=== PATIENT | female | born 1950 | race Two or more races ===

== ENCOUNTER 2020-06-28 15:01 | Outpatient (REF) | payer MEDICARE, SELFPAY ==
--- NOTE | 2020-06-28 15:07 | MM_ITS ---
EXAMINATION: MM SCREENING DIGITAL BREAST TOMOSYNTHESIS, BILATERAL CLINICAL INFORMATION: Screening. Asymptomatic. The lifetime risk of breast cancer based on the Tyrer-Cuzick Model is 3.7%. COMPARISON: Mammography: February 21, 2019 and studies dating back to October 12, 2012 TECHNIQUE: Digital breast tomosynthesis is performed in both the craniocaudal and mediolateral oblique views along with computer-aided detection (CAD). Synthesized 2D images are generated from the tomosynthesis. FINDINGS: There are scattered areas of fibroglandular density (ACR BI-RADS breast composition Category b). There are no significant masses, abnormal calcifications, or other abnormalities. MM/MM tomosynthesis screening BI IMPRESSION: There are no significant changes from prior study. ASSESSMENT: BI-RADS 1: Negative RECOMMENDATION: Routine annual mammography screening. This patient's information was entered into a reminder system with a target due date for their next mammogram.
== END 2020-06-28 15:02 | disposition home or self-care (01) ==
LOC: HO.MAMMO 15:01
PROVIDERS: PCP Internal Medicine; Visit Provider Internal Medicine
DX: Z12.31 Encounter for screening mammogram for malignant neoplasm of breast (principal)
CPT/HCPCS: 77063; 77067

== ENCOUNTER 2020-07-08 14:25 | Outpatient (REF) | payer MEDICARE, SELFPAY | END 2020-07-08 14:26 | disposition home or self-care (01) | LOC: HO.LAB 14:25 | PROVIDERS: PCP Internal Medicine; Visit Provider Internal Medicine | DX: Z20.828 Contact with and (suspected) exposure to other viral communicable diseases (principal) | CPT/HCPCS: U0003 ==

== ENCOUNTER → 2020-07-24 09:26 | Outpatient (BNVA) | payer MEDICARE, SELFPAY | PROVIDERS: PCP Internal Medicine; Referring Provider Internal Medicine; Visit Provider Internal Medicine | DX: E11.65 Type 2 diabetes mellitus with hyperglycemia (principal); E11.40 Type 2 diabetes mellitus with diabetic neuropathy, unspecified; Z79.4 Long term (current) use of insulin; E55.9 Vitamin D deficiency, unspecified; E04.2 Nontoxic multinodular goiter; E78.5 Hyperlipidemia, unspecified; I10 Essential (primary) hypertension; Z79.899 Other long term (current) drug therapy | CPT/HCPCS: Q3014 ==

== ENCOUNTER 2020-08-06 13:04 | Outpatient (REF) | payer MEDICARE, SELFPAY ==
[2020-08-06 14:24] LABS: Estimated Average Glucose 344 mg/dL; Hemoglobin A1c % 13.6 %
[2020-08-06 14:52] LABS: Alanine Aminotransferase 15 U/L (0-31); Albumin Level 4.1 g/dL (3.5-5.0); Alkaline Phosphatase 58 U/L (39-117); Anion Gap 13 (12-20); Aspartate Amino Transferase 17 U/L (5-31); Bilirubin Total 0.5 mg/dL (0.0-1.0); Blood Urea Nitrogen 26 mg/dL (9-16); Calcium 9.4 mg/dL (8.4-10.2); Carbon Dioxide 25 mmol/L (22-29); Chloride 98 mmol/L (96-108); Cholesterol 176 mg/dL; Estimated Glomerular Filt Rate 38; HDL Cholesterol 38 mg/dL; Potassium 4.2 mmol/l (3.3-5.1); Sodium 132 mmol/L (135-145); Triglycerides 409 mg/dL
[2020-08-06 14:57] LABS: Glucose Random 415 mg/dL (60-115)
[2020-08-06 15:13] LABS: Free T4 (Free Thyroxine) 0.95 ng/dL (0.71-1.85); Thyroid Stimulating Hormone 0.44 uIU/mL (0.32-4.0); Vitamin D 25-OH Total 40.4 ng/mL (>30)
[2020-08-06 15:24] LABS: Creatinine Urine 107.36 mg/dL; Microalbum/Creatinine Ratio Ur 31.6 ug/mg cr
[2020-08-07 20:42] LABS: LDL Cholesterol Direct 81 mg/dL (<100)
== END 2020-08-06 13:05 | disposition home or self-care (01) ==
LOC: HO.10HDL 13:04
PROVIDERS: Visit Provider Internal Medicine
DX: E11.65 Type 2 diabetes mellitus with hyperglycemia (principal); Z79.4 Long term (current) use of insulin; E04.2 Nontoxic multinodular goiter; E55.9 Vitamin D deficiency, unspecified
CPT/HCPCS: 80053; 80061; 82043; 82306; 83036; 83721; 84439; 84443

== ENCOUNTER 2020-08-08 10:27 | Outpatient (REF) | payer MEDICARE, SELFPAY ==
--- NOTE | 2020-08-08 10:31 | US_ITS ---
EXAMINATION: US THYROID CLINICAL INFORMATION: Nontoxic multinodular goiter. COMPARISON: Ultrasound soft tissue head/neck thyroid dated 12/15/2018 and 05/05/2012 TECHNIQUE: Linear transducer oneill-scale and color Doppler examination with attention to the region of the thyroid. FINDINGS: SIZE: Measurements of the thyroid lobes and nodules are given in sagittal, anteroposterior and transverse dimensions respectively. Right Thyroid Lobe: 4.7 x 1.7 x 1.9 cm, volume 7.9 mL. Previously 5.3 x 1.9 x 2.3 cm, volume 11.9 mL. Parenchyma: The gland echotexture is homogeneous. Thyroid vascularity is normal. Left Thyroid Lobe: 3.5 x 1.5 x 1.5 cm, volume 4.1 mL. Previously 3.8 x 1.5 x 1.6 cm, volume 4.6 mL. Parenchyma: The gland echotexture is homogeneous. Thyroid vascularity is normal. Isthmus: 0.7 cm in maximum AP dimension. Previously 0.7 cm. RIGHT THYROID LOBE: There are 4 nodules seen. 1. Location: Superior. Size: 0.6 x 0.3 x 0.6 cm. Previous: 0.7 x 0.7 x 0.8 cm. Nodule characteristics: Hypoechoic, smoothly marginated with no intranodular flow, likely complex cyst. 2. Location: Middle. Size: 0.9 x 1.0 x 0.8 cm. Previous: 1.5 x 0.8 x 1.0 cm. Nodule characteristics: Hypoechoic, smoothly marginated with intranodular flow. 3. Location: Middle. Size: 0.8 x 0.7 x 0.7 cm. Previous: 0.8 x 0.7 x 1.0 cm. Nodule characteristics: Hypoechoic, smoothly marginated with intranodular flow. 4. Location: Inferior. Size: 1.7 x 1.2 x 1.7 cm. Previous: 1.6 x 1.5 x 1.8 cm. Nodule characteristics: Hypoechoic, smoothly marginated with intranodular flow. ISTHMUS: There are 3 nodules seen. 1. Location: Right isthmus. Size: 1.0 x 0.9 x 1.0 cm. Previous: 1.4 x 0.9 x 0.2 cm. Nodule characteristics: Hypoechoic, smoothly marginated with intranodular flow. 2. Location: Middle. Size: 1.6 x 0.8 x 1.5 cm. Previous: 0.8 x 1.0 x 0.9 cm. Nodule characteristics: Hypoechoic, smoothly marginated with intranodular flow. 3. Location: Right isthmus. Size: 1.0 x 0.7 x 0.7 cm. Previous: Not documented on the prior study. Nodule characteristics: Hypoechoic, smoothly marginated with intranodular flow. LEFT THYROID LOBE: There are 2 nodules seen. 1. Location: Superior. Size: 1.0 x 0.5 x 0.8 cm. Previous: 0.5 x 0.2 x 0.5 cm. Nodule characteristics: Hypoechoic, smoothly marginated with echogenic calcifications and intranodular flow. 2. Location: Middle. Size: 1.5 x 0.9 x 0.9 cm. Previous: 1.4 x 0.7 x 0.9 cm. Nodule characteristics: Hypoechoic, smoothly marginated with intranodular flow. NODES: No lymphadenopathy is seen in the tissue surrounding the thyroid gland. US/US thyroid IMPRESSION: Multiple bilateral thyroid nodules. A nodule in the mid isthmus has doubled in size an 0.8 to 1.6 cm on the present exam. There is a midpole cystic and solid nodule left thyroid lobe measuring 1.5 cm, new. Recommend biopsy of these 2 nodules.
== END 2020-08-08 10:28 | disposition home or self-care (01) ==
LOC: HO.US 10:27
PROVIDERS: Visit Provider Internal Medicine
DX: E04.2 Nontoxic multinodular goiter (principal)
CPT/HCPCS: 76536

== ENCOUNTER 2020-10-07 06:38 | Outpatient (REF) | payer MEDICARE, SELFPAY | END 2020-10-07 06:39 | disposition home or self-care (01) | LOC: HO.LAB 06:38 | PROVIDERS: Visit Provider Internal Medicine | DX: Z20.822 Contact with and (suspected) exposure to COVID-19 (principal) | CPT/HCPCS: 36415; C9803; U0003; U0005 ==

== ENCOUNTER 2020-11-14 10:37 | Outpatient (REF) | payer MEDICARE, SELFPAY | END 2020-11-14 10:38 | disposition home or self-care (01) | LOC: HO.LAB 10:37 | PROVIDERS: Visit Provider Internal Medicine | DX: Z20.822 Contact with and (suspected) exposure to COVID-19 (principal) | CPT/HCPCS: 36415; C9803; U0003; U0005 ==

== ENCOUNTER 2020-12-25 08:51 | Outpatient (REF) | payer MEDICARE, SELFPAY ==
[2020-12-25 09:22] LABS: COVID-19 Test Negative (Negative); IDNOW Serial# 55D5AD1C
== END 2020-12-25 08:52 | disposition home or self-care (01) ==
LOC: HO.LAB 08:51
PROVIDERS: Visit Provider Internal Medicine
DX: Z20.822 Contact with and (suspected) exposure to COVID-19 (principal)
CPT/HCPCS: 36415; 87635; C9803

== ENCOUNTER 2021-01-10 14:45 | Outpatient (REF) | payer MEDICARE, SELFPAY ==
[2021-01-11 10:41] LABS: CT PCR NOT DETECTED (Not Detect.); NG PCR NOT DETECTED (Not Detect.)
[2021-01-11 11:58] LABS: BV Int Neg Control Negative (Negative); BV Int Pos Control Positive (Positive)
[2021-01-15 20:52] LABS: HPV mRNA E6/E7 rflx Not Detected (Not Detected)
== END 2021-01-10 14:46 | disposition home or self-care (01) ==
LOC: HO.LAB 14:45
PROVIDERS: PCP Internal Medicine; Visit Provider Obstetrics & Gynecology
DX: Z01.419 Encounter for gynecological examination (general) (routine) without abnormal findings (principal); N39.3 Stress incontinence (female) (male); Z87.891 Personal history of nicotine dependence
CPT/HCPCS: 87480; 87491; 87510; 87591; 87624; 87660; 88142

== ENCOUNTER 2021-02-19 11:00 | Outpatient (RCR) | payer MEDICARE, SELFPAY | END 2021-04-08 09:00 | disposition home or self-care (01) | LOC: HO.PT 11:00 | PROVIDERS: Visit Provider Obstetrics & Gynecology | DX: N39.3 Stress incontinence (female) (male) (principal) | CPT/HCPCS: 97110; 97112; 97140; 97162 ==

== ENCOUNTER 2021-02-27 08:58 | Outpatient (REF) | payer MEDICARE, SELFPAY ==
--- NOTE | ~2021-02-27 | MM_ITS ---
EXAMINATION: BONE DENSITOMETRY CLINICAL INDICATION: Other specified personal risk factors. COMPARISON: Baseline BD dated 12/24/2016. TECHNIQUE: Using a [employer] DXA System (software version: 13.1) manufactured by [employer], dual-energy x-ray absorptiometry was performed of the lumbar spine and left hip. The images are of good technical quality. Summary results are attached. FINDINGS: AP SPINE L1-L4: Current: BMD 0.986 g/cm2, Z-score 0.2, T-score -1.6, osteopenia, 5.3% increase from baseline (<5% change is not significant). Baseline: BMD 0.936 g/cm2. LEFT FEMUR, NECK: Current: BMD 0.861 g/cm2, Z-score 0.5, T-score -1.3, osteopenia. Baseline: BMD 0.835 g/cm2. LEFT FEMUR, TOTAL: Current: BMD 0.875 g/cm2, Z-score 0.5, T-score -1.1, osteopenia, 0.8% increase from baseline (<5% change is not significant). Baseline: BMD 0.868 g/cm2. IDENTIFIED RISK FACTORS: Menopause, height loss, history of fracture (adult), anticonvulsants, secondary osteoporosis. HISTORY OF FRACTURE: Foot. MEDICATIONS: Calcium, vitamin D. MM/XR DEXA axial skeleton IMPRESSION: 1. DIAGNOSIS: Osteopenia based on the lowest T-score value of -1.6 in the lumbar spine applying World Health Organization criteria. 2. 10-YEAR FRACTURE RISK PREDICTION, FRAX: Major osteoporotic fracture (clinical spine, forearm, hip or shoulder) 8.6%. Hip fracture 1.0%. 3. Treatment Recommendations: NOF guidelines recommend consideration for treatment in postmenopausal women and men age 50 and older presenting with the following: -A hip or vertebral (clinical or morphometric) fracture. -T-score less than or equal to -2.5 at the femoral neck or spine after appropriate evaluation to exclude secondary causes. -Low bone mass at the hip or spine and a 10-year fracture probability by FRAX of greater than or equal to 3% for hip fracture or greater than or equal to 20% for major osteoporotic fracture based on the [place] adapted WHO algorithm. 4. Other Recommendations: All treatment decisions require clinical judgment and consideration of individual patient factors, including patient preferences, comorbidities, previous drug use, risk factors not captured in the FRAX model (e.g. frailty, falls, vitamin D deficiency, increased bone turnover, interval significant decline in bone density) and possible under or overestimation of fracture risk by FRAX. Additional medical evaluation for secondary cause of low bone mineral density may be appropriate. FUTURE SCAN RECOMMENDATION: People with diagnosed cases of osteoporosis or at high risk for fracture should have regular bone mineral density tests. For patients eligible for Medicare, routine testing is allowed once every 2 years. The testing frequency can be increased to one year for patients who have rapidly progressing disease, those who are receiving or discontinuing medical therapy to restore bone mass, or have additional risk factors.
== END 2021-02-27 08:59 | disposition home or self-care (01) ==
LOC: HO.MAMMO 08:58
PROVIDERS: PCP Internal Medicine; Visit Provider Obstetrics & Gynecology
DX: Z13.820 Encounter for screening for osteoporosis (principal); M85.80 Other specified disorders of bone density and structure, unspecified site; Z78.0 Asymptomatic menopausal state; Z87.81 Personal history of (healed) traumatic fracture; Z79.899 Other long term (current) drug therapy; Z79.01 Long term (current) use of anticoagulants
CPT/HCPCS: 77080

== ENCOUNTER 2021-07-30 10:45 | Outpatient (REF) | payer MEDICARE, SELFPAY ==
[2021-07-30 14:35] LABS: Alanine Aminotransferase 16 U/L (0-31); Albumin Level 4.2 g/dL (3.5-5.0); Alkaline Phosphatase 69 U/L (39-117); Anion Gap 12 (12-20); Aspartate Amino Transferase 19 U/L (5-31); Bilirubin Total 0.5 mg/dL (0.0-1.0); Blood Urea Nitrogen 22 mg/dL (9-16); Calcium 9.6 mg/dL (8.4-10.2); Carbon Dioxide 27 mmol/L (22-29); Chloride 104 mmol/L (96-108); Cholesterol 186 mg/dL; Estimated Glomerular Filt Rate 39; Glucose Random 143 mg/dL (60-115); HDL Cholesterol 32 mg/dL; LDL Cholesterol Calculated 97 mg/dl; Sodium 139 mmol/L (135-145); Total Protein 7.1 g/dL (6.5-8.0); Triglycerides 287 mg/dL
[2021-07-30 14:43] LABS: Free T4 (Free Thyroxine) 1.06 ng/dL (0.71-1.85); Thyroid Stimulating Hormone 0.67 uIU/mL (0.32-4.0)
[2021-07-30 14:52] LABS: Creatinine Urine 97.36 mg/dL; Microalbum/Creatinine Ratio Ur 19.5 ug/mg cr
[2021-07-30 15:03] LABS: Hemoglobin A1c % > 14.0 %
[2021-07-30 15:55] LABS: Vitamin B12 723 pg/mL (200-900)
[2021-08-01 07:41] LABS: LDL Cholesterol Direct 85 mg/dL (<100)
[2021-08-01 18:06] LABS: Triiodothyronine T3 Total 95 ng/dL (76-181)
== END 2021-07-30 10:46 | disposition home or self-care (01) ==
LOC: HO.10HDL 10:45
PROVIDERS: Visit Provider Internal Medicine
DX: E04.2 Nontoxic multinodular goiter (principal); E11.65 Type 2 diabetes mellitus with hyperglycemia; Z79.4 Long term (current) use of insulin
CPT/HCPCS: 36415; 80053; 80061; 82043; 82607; 83036; 83721; 84439; 84443; 84480

== ENCOUNTER 2021-08-17 12:41 | Emergency (ER) | payer MEDICARE, SELFPAY ==
[2021-08-17 12:48] VITALS: BP 187/63; PULSE 59; RESP 18; TEMP 36.9; O2SAT 98; BMI 31.2
--- NOTE | 2021-08-17 13:11 | ECG_ITS ---
Test Reason : DIZZINESS Blood Pressure : / mmHG Vent. Rate : 059 BPM Atrial Rate : 059 BPM P-R Int : 174 ms QRS Dur : 080 ms QT Int : 432 ms P-R-T Axes : 021 -15 000 degrees QTc Int : 427 ms Sinus bradycardia Minimal voltage criteria for LVH, may be normal variant ( R in aVL ) Borderline ECG When compared with ECG of 08-APR-2020 17:45, No significant change was found Referred By: Alma Shaw Electronically Signed By:SMILEY MAYER MD
--- NOTE | 2021-08-17 13:11 | ED.DIZZY ---
HPI - Dizziness General Chief Complaint: Dizziness Stated Complaint: headache dizzy r arm pain Time Seen by Provider: 08/17/21 13:11 Source: patient Mode of arrival: ambulatory Limitations: no limitations History of Present Illness HPI Narrative: This is a 71-year-old female past medical history significant for multinodular thyroid, hyperlipidemia, hypertension, diabetes presenting to the emergency department with dizziness that started this morning. She describes her dizziness the room spinning, she tells me is worse when she is lying down with her eyes closed, better sitting. She also reports associated nausea. She tells me that this has happened to her before, and they gave her meclizine which helped. She reports that this started after she woke up, and side up quickly. She denies chest pain, headache, vision changes, an vomiting, abdominal pain, weakness. MD elicited complaint: dizziness Onset (ago): hour(s) (4) Timing: sudden onset, awoke with symptoms and constant Severity: severe Description: sense of movement and room spinning History of similar symptoms: Yes Exacerbating factors: change in body position, keeping eyes closed and position/lying down Relieving factors: nothing Associated symptoms: denies other symptoms Related Data Home Medications Medication Instructions Recorded Confirmed alcohol swabs 0 pad TOPICAL 07/24/20 07/24/20 amlodipine 5 mg tablet 5 mg PO DAILY 07/24/20 07/24/20 aspirin 81 mg chewable tablet 1 tab PO DAILY 07/24/20 07/24/20 atenolol 50 mg tablet 50 mg PO DAILY 07/24/20 07/24/20 blood sugar diagnostic #10 ea 07/24/20 07/24/20 calcium carbonate 500 mg-vitamin 0 tab PO 07/24/20 07/24/20 D3 10 mcg (400 unit) tablet chlorthalidone 50 mg tablet 50 mg PO DAILY 07/24/20 07/24/20 cilostazol 50 mg tablet 50 mg PO BID 07/24/20 07/24/20 cimetidine 200 mg tablet 200 mg PO BID 07/24/20 07/24/20 gabapentin 400 mg capsule 400 mg PO BID cap 07/24/20 07/24/20 insulin aspart U-100 100 unit/mL 10 unit SUBCUT TID ml 07/24/20 07/24/20 (3 mL) subcutaneous pen insulin glargine 100 unit/mL (3 56 unit SUBCUT QPM ml 07/24/20 07/24/20 mL) subcutaneous pen loratadine 10 mg tablet 10 mg PO DAILY 07/24/20 07/24/20 losartan 100 mg tablet 100 mg PO DAILY 07/24/20 07/24/20 pantoprazole 40 mg tablet,delayed 40 mg PO DAILY 07/24/20 07/24/20 release pen needle, diabetic 32 gauge x #50 ea 07/24/20 07/24/20 rosuvastatin 10 mg tablet 10 mg PO BEDTIME 07/24/20 07/24/20 Previous Rx's Medication Instructions Recorded dulaglutide 1.5 mg/0.5 mL 1.5 mg (0.5 mL) SUBCUT QWEEK 30 08/12/21 subcutaneous pen injector Days #2.5 ml (Trulicity) meclizine 25 mg tablet 25 mg PO Q6-8H PRN #20 tab 08/17/21 ondansetron 4 mg disintegrating 4 mg PO ONCE PRN #10 tab 08/17/21 tablet Allergies Allergy/AdvReac Type Severity Reaction Status Date / Time No Known Allergies Allergy Verified 01/10/21 14:49 Review of Systems Review of Systems: Constitutional : No Weight loss, No Fever, No Chills, No Fatigue, No Malaise ENT/Mouth : No sore throat, No Rhinorrhea Eyes: No Eye Pain, No Swelling, No Redness Cardiovascular : No Chest Pain, No SOB, No Dyspnea on Exertion, No Orthopnea, No Edema, No Palpitations Respiratory : No Cough, No Sputum, No Wheezing Gastrointestinal : + Nausea, No Vomiting, No Diarrhea, No Constipation, No abdominal Pain, No Hematochezia, No Melena Genitourinary : No Dysuria, No Urinary Frequency, No Hematuria, Musculoskeletal : No joint pain, No Myalgias, No Joint Swelling Skin : No Skin Lesions, No rash Neuro : No Weakness, No Numbness, + Dizziness, No Headache All other systems reviewed and are negative [facility] Past Medical History Attestation statement: The following information was validated with the patient. Source: old records reviewed and nursing notes reviewed Medical History HLD (hyperlipidemia) HTN (hypertension) Multinodular thyroid T2DM (type 2 diabetes mellitus) Vitamin D deficiency Surgical History History of cholecystectomy Hx of colonoscopy Hx of endoscopic retrograde cholangiopancreatography Hx of tubal ligation Family History Family History Father Emphysema of lung Mother No problems noted. Social History Social History Alcohol intake: never Cigarette Packs Per Day: 1 Years Smoked: 20 Smoked in Last 30 Days: No Use of substances other than those prescribed or required for medical reasons: No Advance Directives: No Advance Directives Information Provided: Yes Physical Exam Vital Signs: Vital Signs: Last Vital Signs Temp 98.4 F 08/17/21 12:48 Pulse 59 08/17/21 12:48 Resp 18 08/17/21 12:48 BP 187/63 H 08/17/21 12:48 Pulse Ox 98 08/17/21 12:48 BMI result Body Mass Index 31.2 Vital signs are stable, patient noted to be slightly hypertensive. Appearance: Alert.? Oriented X3.? No acute distress.? Head: Normocephalic, atraumatic, no step-offs or deformities Eyes: Pupils equal, round and reactive to light.? ENT: Pharynx normal.? Neck: Normal inspection.? Neck supple.? CVS: Normal heart rate and rhythm.? Pulses normal.? Respiratory: No respiratory distress.? Breath sounds normal.? Abdomen: Soft and nontender.? Skin: Skin warm and dry.? Normal skin color.? Normal skin turgor.? Extremities: No lower extremity edema.? No calf ttp. 5/5 strength to bilateral upper and lower extremities Back: No midline tenderness, no C-spine tenderness, full range of motion, no CVA tenderness bilaterally Neuro: Oriented X 3.? No motor deficit.? No sensory deficit. 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 Patient ambulating with a steady gait, no ataxia. Course Reevaluation(s) Reevaluation #1: I did the Lee maneuver on the patient, and patient reports significant improvement, this is reassuring as this is likely vertigo. I discussed getting a head CT with the patient and she tells me she will return with new or worsening symptoms i do not suspect ICH, posterior or cerebellar stroke, stroke. Patient agrees that a CT is not needed at this time. Time: 13:36 Reevaluation #2: Patient is ambulating around the emergency department, free of dizziness, patient tells me she feels so much better. EKG does not show ischemia. Orthostatic vitals negative. At this time most likely diagnosis is vertigo. Meclizine and Zofran have been sent to the patient's pharmacy. I have advised her to return to the emergency department with new or worsening symptoms. Comfortable with discharge home. Time: 14:22 MDM - Dizziness MDM Narrative Medical decision making narrative: [id number] 71-year-old female past medical history significant for HLD, HTN and DM presents to the ED with vertigo since this AM. Vertigo started after quickly sitting up in bed this AM. Reports room spinning . Patient tells me she has had this before and meclizine has helped. Upon physical examination lungs are clear, regular rate and rhythm, abdomen soft nontender nondistended. 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 Bilateral ear canals within normal limits. Based off patient's history and physical examination I suspect that this is vertigo, unlikely that this is a posterior stroke, patient denies vision changes, difficulties with ambulation, weakness, no focal neuro deficits. She has a normal [id number], [id number]. Patient denies trauma to head, unlikely ICH. Plan at this time is to obtain an EKG, orthostatics vital signs. I wiill give meclizine and zofran. Differential Diagnosis Differential diagnosis: Likely adverse reaction to drug Medical Records Attestation: I reviewed the patient's medical records. Lab Data Attestation: I reviewed the patient's lab results. ECG Data Attestation: I personally reviewed and interpreted this ECG as follows: ECG interpretation date: 08/17/21 ECG interpretation time: 14:12 Prior ECG tracings: available for review Interpretation: Ventricular rate of 59, ME normal, QRS normal, QTC normal. No ST elevations or inversions concerning for ischemia. EKG shows sinus bradycardia. No significant changes when compared to EKG from April 08, 2020. Critical Care Time Critical Care Time Critical Care Time: No Discharge Plan Discharge Clinical Impression: Vertigo, Nausea Patient Disposition: Home, Self-Care Instructions: Vertigo (ED), Acute Nausea and Vomiting (ED) Additional Instructions: Take your medications as prescribed. If you were prescribed antibiotics today, it is important that you take your medication to their entirety, do not skip any doses, do not finish them early. Follow-up with your primary care provider this week. Return to the emergency department with new or worsening symptoms. In case of emergency call 911 Prescriptions: New ondansetron 4 mg tablet,disintegrating 4 mg PO ONCE PRN (Reason: nausea and vomiting) Qty: 10 RF: 0 meclizine 25 mg tablet 25 mg PO Q6-8H PRN (Reason: dizziness) Qty: 20 RF: 0 No Action Trulicity 1.5 mg/0.5 mL pen injector 1.5 mg subcut QWEEK 30 Days Qty: 2.5 RF: 4 atenolol 50 mg tablet 50 mg PO DAILY RF: 0 gabapentin 400 mg capsule 400 mg PO BID RF: 0 Lantus Solostar U-100 Insulin 100 unit/mL (3 mL) insulin pen 56 unit subcut QPM RF: 0 insulin aspart U-100 100 unit/mL (3 mL) insulin pen 10 unit subcut TID RF: 0 (DME) pen needle, diabetic 32 gauge x 5/32 needle See Rx Instructions ea .ROUTE .MEDSUPPLY Qty: 50 RF: 0 calcium carbonate-vitamin D3 500 mg(1,250mg) -400 unit tablet 0 tab PO RF: 0 loratadine 10 mg tablet 10 mg PO DAILY RF: 0 losartan 100 mg tablet 100 mg PO DAILY RF: 0 aspirin 81 mg tablet,chewable 1 tab PO DAILY RF: 0 pantoprazole 40 mg tablet,delayed release (DR/EC) 40 mg PO DAILY RF: 0 amlodipine 5 mg tablet 5 mg PO DAILY RF: 0 (DME) FreeStyle Lite Strips Strip See Rx Instructions ea Not Applicable .MEDSUPPLY Qty: 10 RF: 0 rosuvastatin 10 mg tablet 10 mg PO BEDTIME RF: 0 cilostazol 50 mg tablet 50 mg PO BID RF: 0 chlorthalidone 50 mg tablet 50 mg PO DAILY RF: 0 cimetidine 200 mg tablet 200 mg PO BID RF: 0 alcohol swabs Pads, Medicated 0 pad topical RF: 0 Referrals: Oriana Botello MD [Primary Care Provider] - 2 days Stand Alone Forms: Work/School Release
[2021-08-17] MEDS: Meclizine HCl 25 MG TABLET PO (13:45)
[2021-08-17] MEDS: Ondansetron ODT 4 MG TAB.RAPDIS TRANSLINGU (13:45)
[2021-08-17 15:08] VITALS: BP 160/63; PULSE 62
[2021-08-17 15:09] VITALS: BP 185/62; PULSE 60
[2021-08-17 15:10] VITALS: BP 163/63; PULSE 62
== END 2021-08-17 15:26 | disposition home or self-care (01) ==
PROVIDERS: Emergency Provider Emergency Medicine; PCP Internal Medicine
DX: R42 Dizziness and giddiness (principal); R11.0 Nausea; I10 Essential (primary) hypertension; E11.9 Type 2 diabetes mellitus without complications; E78.5 Hyperlipidemia, unspecified; Z79.4 Long term (current) use of insulin; Z79.82 Long term (current) use of aspirin; Z79.899 Other long term (current) drug therapy
CPT/HCPCS: 93005; 99283; 99284

== ENCOUNTER 2021-09-11 17:53 | Emergency (ER) | payer MEDICARE, SELFPAY ==
--- NOTE | ~2021-09-11 | CT_ITS ---
EXAMINATION: CT ABDOMEN AND PELVIS WITHOUT CONTRAST CLINICAL INFORMATION: Abdominal pain, resolved abdominal distension . COMPARISON: 06/27/2018. TECHNIQUE: Multidetector volumetric imaging was performed from the superior aspect of the liver through the pubic symphysis without contrast per renal stone protocol. Sagittal and coronal reformatted images were obtained on the technologist workstation. This CT examination was performed using dose optimization techniques as appropriate, variously including the following: *Automated exposure control *Adjustment of mA and/or kV according to patient size (this includes techniques or standardized protocols for targeted exams where dose is matched to indication/reason for exam; i.e. extremities or head) *Use of iterative reconstruction technique DLP: 404 mGy-cm. FINDINGS: LUNG BASES: Minimal dependent atelectasis. LIVER, GALLBLADDER, BILIARY TREE: Air in the biliary ductal system likely secondary to prior papillotomy. No focal hepatic lesions seen on this noncontrast study. Gallbladder surgically absent. PANCREAS: Unremarkable. SPLEEN: Unremarkable. ADRENAL GLANDS: There is a stable 1.8 cm left adrenal adenoma similar to the prior study. Contralateral right adrenal gland unremarkable. KIDNEYS AND URETERS: The kidneys are normal in size, shape, and attenuation. No hydronephrosis, hydroureter, or obstructing calculi seen. Mild vascular calcification noted No perinephric stranding. BLADDER: Unremarkable. GASTROINTESTINAL TRACT: Scattered colonic diverticulosis but no evidence for diverticulitis. Normal-appearing appendix in the right lower quadrant. ABDOMINAL WALL: No significant hernia is appreciated. LYMPHOVASCULAR STRUCTURES: Extensive vascular calcification within the aorta iliac system and mesenteric vessels. Bilateral iliac and distal aortic stents are seen.. PELVIC VISCERA: Unremarkable. OSSEUS STRUCTURES: Unremarkable. CT/CT abdomen pelvis wo con IMPRESSION: Chronic appearing changes similar to the prior study. I do not appreciate any acute superimposed process. .
--- NOTE | ~2021-09-11 | XR_ITS ---
EXAMINATION: PORTABLE CHEST 1 VIEW CLINICAL INFORMATION: abd pain . COMPARISON: 11/04/2019. TECHNIQUE: Portable frontal view of the chest was obtained. FINDINGS: The lungs are well expanded. No focal infiltrate, effusion, edema, or pneumothorax. Cardiac and mediastinal silhouettes are within normal limits for technique. No acute bony abnormality seen. XR/XR chest 1V IMPRESSION: No evidence of acute disease.
--- NOTE | ~2021-09-11 | US_ITS ---
EXAMINATION: US ABDOMEN COMPLETE CLINICAL INFORMATION: Right upper quadrant pain. Elevated enzymes.. COMPARISON: MR abdomen 06/28/2018. CT scan abdomen pelvis 06/27/2018 TECHNIQUE: Real-time imaging of the abdominal viscera. Carotid Doppler exam was used. FINDINGS: PANCREAS: Normal. ABDOMINAL AORTA: The proximal, mid, and distal segments are normal in caliber. INFERIOR VENA CAVA: Visualized portions are normal. LIVER: Normal. The liver is normal in size. The liver contour is normal. Parenchymal echogenicity is normal. No focal hepatic lesion. There is no intrahepatic biliary duct dilatation seen. GALLBLADDER: Status post cholecystectomy. No fluid collection at the gallbladder bed. COMMON BILE DUCT: Normal in caliber measuring 0.7 cm in diameter. (Choledocholithiasis noted on MR study of 06/28/2018. The CBD measures 1.2 cm on the prior MR exam.) RIGHT KIDNEY: Normal. No hydronephrosis. No renal calculi or focal parenchymal lesions. The kidney measures 10.4 cm in maximum dimension. LEFT KIDNEY: Normal. No hydronephrosis. No renal calculi or focal parenchymal lesions. The kidney measures 10.5 cm in maximum dimension. SPLEEN: Normal. The spleen measures 9.1 cm in maximum dimension. FREE FLUID: None. US/US abdomen complete IMPRESSION: No acute abnormality ultrasound of abdomen. Status post cholecystectomy. There is no bile duct dilatation. MRCP may be helpful for further assessment.
[2021-09-11 18:42] VITALS: BP 181/71; PULSE 80; RESP 18; TEMP 39; O2SAT 98; BMI 26.4
[2021-09-11] MEDS: Acetaminophen 325 MG TABLET 650 MG PO (18:54)
[2021-09-11 19:06] LABS: MANUAL DIFF FLAG NO
[2021-09-11 19:08] LABS: Basophils Percent Auto 0.2 % (0-2); Eosinophils Percent Auto 0.1 % (0-4); Hematocrit 33.4 % (37.0-47.0); Hemoglobin 11.8 g/dl (12.0-16.0); Imm Gran Abs Auto 0.11 X10*3/uL (0.00-0.03); Imm Gran Pct Auto 0.7 % (0.0-0.4); Lymphocytes Percent Auto 5.7 % (20-40); Mean Corpuscular HGB Conc 35.3 g/dl (31.0-35.0); Mean Corpuscular Hemoglobin 27.1 pg (27.0-33.0); Mean Corpuscular Volume 76.8 fL (80.0-98.0); Mean Platelet Volume 11.7 fL (9.4-12.3); Neutrophils Absolute Auto 14.7 x10*3/uL (2.0-8.3); Neutrophils Percent Auto 87.3 % (45-73); Platelet Count 225 X10*3/uL (160-400); Red Blood Count 4.35 X10*6/uL (4.20-5.50); Red Cell Distribution Width 11.8 % (11.0-16.0); White Blood Count 16.8 X10*3/uL (4.8-10.8)
[2021-09-11 19:20] LABS: COVID-19 Test Positive (Negative)
[2021-09-11 19:20] LABS: INTERNATIONAL NORM RATIO 1.2 (0.9-1.1); Prothrombin Time 13.6 SEC (9.9-13.0)
[2021-09-11 19:23] LABS: Appearance Urine CLEAR; Color Urine YELLOW; Glucose Urine UA >=1000 MG/DL (NEG); Leukocyte Esterase Urine NEG (NEG); Nitrite Urine NEG (NEG); UACC Culture Trigger NO; Urine Blood TRACE (NEG); Urine Ketones NEG (NEG); Urine Protein TRACE MG/DL (NEG-TRACE)
[2021-09-11 19:31] LABS: Alanine Aminotransferase 733 U/L (0-31); Albumin Level 4.5 g/dL (3.5-5.0); Alkaline Phosphatase 210 U/L (39-117); Anion Gap 14 (12-20); Aspartate Amino Transferase 792 U/L (5-31); Bilirubin Direct 0.7 mg/dL (0.0-0.5); Bilirubin Total 1.4 mg/dL (0.0-1.0); Blood Urea Nitrogen 24 mg/dL (9-16); Calcium 9.9 mg/dL (8.4-10.2); Carbon Dioxide 27 mmol/L (22-29); Chloride 95 mmol/L (96-108); Creatinine Clr Calc Pharmacy 25.2; Estimated Glomerular Filt Rate 30; Glucose Random 405 mg/dL (60-115); Lipase 33 U/L (8-78); Potassium 3.6 mmol/L (3.3-5.1); Sodium 132 mmol/L (135-145); Total Protein 7.8 g/dL (6.5-8.0)
[2021-09-11 19:42] LABS: RBC Urine 0-2 /HPF (0)
[2021-09-11 19:43] LABS: Squamous Epithelial Cell Urine TRACE /LPF
--- NOTE | 2021-09-11 20:07 | ED_ITS ---
HPI - Fever General Chief Complaint: Fever Stated Complaint: High blood pressure Time Seen by Provider: 09/11/21 18:51 Source: patient and family Mode of arrival: ambulatory Limitations: language barrier History of Present Illness HPI Narrative: 71-year-old female presents with fevers, chills, abdominal pain with distention and back pain. Stated that she has not felt well for a few days however the abdominal pain and abdominal distention started yesterday. She did take a COVID test at home which was negative. She does not report any nausea, vomiting, diarrhea, chest pain or pressure, palpitations, syncope, lightheadedness, dizziness, or anorexia. MD elicited complaint: fever Pertinent past history: diabetes Onset (ago): day(s) Exacerbating factors: nothing Relieving factors: nothing Associated symptoms: chills, myalgias, abdominal pain and back/flank pain Treatments prior to arrival fever: none Related Data Home Medications Medication Instructions Recorded Confirmed alcohol swabs 0 pad TOPICAL 07/24/20 07/24/20 amlodipine 5 mg tablet 5 mg PO DAILY 07/24/20 07/24/20 aspirin 81 mg chewable tablet 1 tab PO DAILY 07/24/20 07/24/20 atenolol 50 mg tablet 50 mg PO DAILY 07/24/20 07/24/20 blood sugar diagnostic #10 ea 07/24/20 07/24/20 calcium carbonate 500 mg-vitamin 0 tab PO 07/24/20 07/24/20 D3 10 mcg (400 unit) tablet chlorthalidone 50 mg tablet 50 mg PO DAILY 07/24/20 07/24/20 cilostazol 50 mg tablet 50 mg PO BID 07/24/20 07/24/20 cimetidine 200 mg tablet 200 mg PO BID 07/24/20 07/24/20 gabapentin 400 mg capsule 400 mg PO BID cap 07/24/20 07/24/20 insulin aspart U-100 100 unit/mL 10 unit SUBCUT TID ml 07/24/20 07/24/20 (3 mL) subcutaneous pen insulin glargine 100 unit/mL (3 56 unit SUBCUT QPM ml 07/24/20 07/24/20 mL) subcutaneous pen loratadine 10 mg tablet 10 mg PO DAILY 07/24/20 07/24/20 losartan 100 mg tablet 100 mg PO DAILY 07/24/20 07/24/20 pantoprazole 40 mg tablet,delayed 40 mg PO DAILY 07/24/20 07/24/20 release pen needle, diabetic 32 gauge x #50 ea 07/24/20 07/24/20 rosuvastatin 10 mg tablet 10 mg PO BEDTIME 07/24/20 07/24/20 Previous Rx's Medication Instructions Recorded dulaglutide 1.5 mg/0.5 mL 1.5 mg (0.5 mL) SUBCUT QWEEK 30 08/12/21 subcutaneous pen injector Days #2.5 ml (Trulicity) meclizine 25 mg tablet 25 mg PO Q6-8H PRN #20 tab 08/17/21 ondansetron 4 mg disintegrating 4 mg PO ONCE PRN #10 tab 08/17/21 tablet Allergies Allergy/AdvReac Type Severity Reaction Status Date / Time No Known Allergies Allergy Verified 09/11/21 18:42 Review of Systems Review of Systems: Constitutional: No Weight loss, positive Fever, positive Chills, No Night Sweats, positive Fatigue, No Malaise ENT/Mouth: No Hearing loss, No Ear Pain, No Nasal Congestion, No Sinus Pain, No Hoarseness, No sore throat, No Rhinorrhea, No Swallowing Difficulty Eyes: No Eye Pain, No Swelling, No Redness, No Foreign Body, No Discharge, No Vision Changes Cardiovascular: No Chest Pain, No SOB, No Dyspnea on Exertion, No Orthopnea, No Edema, No Palpitations Respiratory: No Cough, No Sputum, No Wheezing, No Smoke Exposure, No Dyspnea Gastrointestinal: Positive Nausea, no Vomiting, no Diarrhea, positive abdominal Pain, No Hematochezia, No Melena Genitourinary: no irregular bleeding, No Dysuria, No Urinary Frequency, No Hematuria, No Urinary Incontinence, No Urgency, No Flank Pain, No Urinary Flow Changes, No Hesitancy Musculoskeletal: Positive back pain, No joint pain, No Myalgias, No Joint Swelling Skin: No Skin Lesions, No rash Neuro: No Weakness, No Numbness, No Paresthesias, No Loss of Consciousness, No Dizziness, positive Headache Psych: No Anxiety/Panic, No Depression, No SI/HI/AH/VH, No Social Issues Heme/Lymph: No Bruising, No Bleeding,No Lymphadenopathy Endocrine: No Polyuria, No Polydipsia, No Temperature Intolerance Yes all other systems are reviewed and are negative [facility] Past Medical History Attestation statement: The following information was validated with the patient. Source: old records reviewed Medical History HLD (hyperlipidemia) HTN (hypertension) Multinodular thyroid T2DM (type 2 diabetes mellitus) Vitamin D deficiency Surgical History History of cholecystectomy Hx of colonoscopy Hx of endoscopic retrograde cholangiopancreatography Hx of tubal ligation Family History Family History Father Emphysema of lung Mother No problems noted. Social History Social History Alcohol intake: never Cigarette Packs Per Day: 1 Years Smoked: 20 Advance Directives: No Advance Directives Information Provided: No Physical Exam Vital Signs: Vital Signs: Last Vital Signs Temp 98.3 F 09/11/21 23:35 Pulse 71 09/11/21 23:35 Resp 16 09/11/21 23:35 BP 139/47 L 09/11/21 23:35 Pulse Ox 98 09/11/21 23:49 BMI result Body Mass Index 26.4 Appearance: Alert. Oriented X3. Mild distress. Febrile. Eyes: Pupils equal, round and reactive to light. EOMI. Sclera nonicteric. ENT: Pharynx normal. Moist mucous membranes. Neck: Normal inspection. Neck supple. CVS: Normal heart rate and rhythm. Pulses normal. Respiratory: No respiratory distress. Breath sounds normal. Abdomen: Soft and nontender. Nondistended. No rigidity. Skin: Skin warm and dry. Normal skin color. Normal skin turgor. Extremities: No lower extremity edema. A well-balanced well coordinated. Neuro: No motor deficit. No sensory deficit. Cranial nerves 2-12 intact. Course Course Course Narrative: Upon initial triage, RN obtained this ENGINE TURNER for evaluation. I did order workup including CBC, Chem 7, LFTs, lactic and cultures. Based on patient's temperature of 102.2? oral. I did complete physical exam, she did not have any abdominal tenderness indicating need for emergent intervention. There was no rebound, no rigidity, no distention, with negative Lawrence's and McBurney's. Patient does report that 1 of her organs in her abdomen exploded, but does not know what kind of surgery she had. 8:08 p.m. lab levels noted to be elevated, elevated BUN, creatinine, glucose elevated at 405. AST 792, ALT 733, LDH 439. Labs are consistent with positive COVID-19 testing however, patient does have a viral syndrome. Patient was brought back in to [facility] [place], although patient is WILMAR criteria 2, I felt that for continuity of care that I would continue to keep this patient, as I did physical assessment and the lab values upon triage. Patient hyponatremic, does have an elevated glucose of 405 so corrected sodium is normal. BUN and creatinine elevated, 24 and 1.69, patient has not had prior elevated creatinine levels. Could possibly be due to viral syndrome, verses diabetic hyperglycemia, versus COVID viral syndrome, versus dehydration. For suspected cholecystitis based on patient initial presentation and physical exam, I will order ceftriaxone, resuscitate fluids with 1 L at this time. 8:16 p.m. patient believes that she may have had her gallbladder removed in [place]. Stated that something in her abdomen exploded and she needed multiple surgeries but she is not quite sure. electronic integrated systems mechanic utilized for all correspondence. 10:[address] scan of abdomen pelvis negative for acute findings, does show consistent chronic changes consistent with prior exams. Gallbladder is surgically absent. Abdominal ultrasound negative for acute findings. Chest x- ray is negative for acute findings. Will repeat chemistries. 12:36 a.m. chemistry still pending. Vital signs are stable and within normal limits. O2 sat 98% on room air. 1:10 a.m. chemistries have improved, detailed discussion with patient utilizing electronic integrated systems mechanic and patient's son with a detailed discussion on signs and symptoms indicating need for urgent medical attention. Both patient and family verbalized understanding of signs and symptoms requiring emergent Care, and they do understand that patient may need to return because at this time patient does not meet admission criteria. Patient has even unlabored respiration, O2 sat 99% on room air, patient able to tolerate p.o. fluids. Repeat chemistries have improved. Plan of care to discharge home, patient verbalized understanding of and agrees to plan of care discharge home. MDM - Fever MDM Narrative Medical decision making narrative: Cholecystitis, cholelithiasis, COVID-19 Differential Diagnosis Differential diagnosis: Likely cellulitis, fever of unknown origin, community acquired pneumonia, pyelonephritis, viral infection, sepsis and influenza Medical Records Attestation: I reviewed the patient's medical records. Lab Data Attestation: I reviewed the patient's lab results. Result diagrams: 09/11/21 19:00 09/12/21 00:20 Labs: Lab Results 09/11/21 09/11/21 09/11/21 Range/Units 18:50 19:00 19:00 WBC 16.8 H (4.8-10.8) X10*3/uL RBC 4.35 (4.20-5.50) X10*6/uL Hgb 11.8 L (12.0-16.0) g/dl Hct 33.4 L (37.0-47.0) % MCV 76.8 L (80.0-98.0) fL MCH 27.1 (27.0-33.0) pg MCHC 35.3 H (31.0-35.0) g/dl RDW 11.8 (11.0-16.0) % Plt Count 225 (160-400) X10*3/uL MPV 11.7 (9.4-12.3) fL Immature Gran % (Auto) 0.7 H (0.0-0.4) % Neut % (Auto) 87.3 H (45-73) % Lymph % (Auto) 5.7 L (20-40) % [place] % (Auto) 6.0 (2-11) % Eos % (Auto) 0.1 (0-4) % Baso % (Auto) 0.2 (0-2) % Lymph # (Auto) 1.0 L (1.2-4.9) X10*3/uL [place] # (Auto) 1.0 (0.1-1.2) X10*3/uL Eos # (Auto) 0.0 (0.0-0.4) X10*3/uL Baso # (Auto) 0.0 (0.0-0.2) X10*3/uL Abs Immat Gran (auto) 0.11 H (0.00-0.03) X10*3/uL Absolute Neuts (auto) 14.7 H (2.0-8.3) x10*3/uL Absolute Nucleated RBC 0.000 (0.0-0.012) X10*3/uL Nucleated RBC % (auto) 0.0 (0.0-0.2) /100WBC PT (9.9-13.0) SEC INR (0.9-1.1) Sodium 132 L (135-145) mmol/L Potassium 3.6 (3.3-5.1) mmol/L Chloride 95 L (96-108) mmol/L Carbon Dioxide 27 (22-29) mmol/L Anion Gap 14 (12-20) BUN 24 H (9-16) mg/dL Creatinine 1.69 H (0.5-1.4) mg/dL Estim Creat Clear Calc 25.2 Estimated GFR 30 POC Glucose (60-115) mg/dL Random Glucose 405 H* (60-115) mg/dL Lactic Acid (0.5-2.0) mmol/L Calcium 9.9 (8.4-10.2) mg/dL Total Bilirubin 1.4 H (0.0-1.0) mg/dL Direct Bilirubin 0.7 H (0.0-0.5) mg/dL AST 792 H (5-31) U/L ALT 733 H (0-31) U/L Alkaline Phosphatase 210 H D (39-117) U/L Total Protein 7.8 (6.5-8.0) g/dL Albumin 4.5 (3.5-5.0) g/dL Lipase 33 (8-78) U/L Urine Color Urine Appearance Urine pH (5.0-8.0) Ur Specific [place] (1.005-1.025) Urine Protein (NEG-TRACE) MG/DL Urine Glucose (UA) (NEG) MG/DL Urine Ketones (NEG) MG/DL Urine Blood (NEG) Urine Nitrite (NEG) Ur Leukocyte Esterase (NEG) Urine RBC (0) /HPF Urine WBC (0-4) /HPF Ur Squamous Epith Cells /LPF Urine Bacteria /LPF COVID-19 (JOSE) Positive A (Negative) COVID-19 Clin Com See Note 09/11/21 09/11/21 09/11/21 Range/Units 19:00 19:00 19:14 WBC (4.8-10.8) X10*3/uL RBC (4.20-5.50) X10*6/uL Hgb (12.0-16.0) g/dl Hct (37.0-47.0) % MCV (80.0-98.0) fL MCH (27.0-33.0) pg MCHC (31.0-35.0) g/dl RDW (11.0-16.0) % Plt Count (160-400) X10*3/uL MPV (9.4-12.3) fL Immature Gran % (Auto) (0.0-0.4) % Neut % (Auto) (45-73) % Lymph % (Auto) (20-40) % [place] % (Auto) (2-11) % Eos % (Auto) (0-4) % Baso % (Auto) (0-2) % Lymph # (Auto) (1.2-4.9) X10*3/uL [place] # (Auto) (0.1-1.2) X10*3/uL Eos # (Auto) (0.0-0.4) X10*3/uL Baso # (Auto) (0.0-0.2) X10*3/uL Abs Immat Gran (auto) (0.00-0.03) X10*3/uL Absolute Neuts (auto) (2.0-8.3) x10*3/uL Absolute Nucleated RBC (0.0-0.012) X10*3/uL Nucleated RBC % (auto) (0.0-0.2) /100WBC PT 13.6 H (9.9-13.0) SEC INR 1.2 H (0.9-1.1) Sodium (135-145) mmol/L Potassium (3.3-5.1) mmol/L Chloride (96-108) mmol/L Carbon Dioxide (22-29) mmol/L Anion Gap (12-20) BUN (9-16) mg/dL Creatinine (0.5-1.4) mg/dL Estim Creat Clear Calc Estimated GFR POC Glucose (60-115) mg/dL Random Glucose (60-115) mg/dL Lactic Acid 2.0 (0.5-2.0) mmol/L Calcium (8.4-10.2) mg/dL Total Bilirubin (0.0-1.0) mg/dL Direct Bilirubin (0.0-0.5) mg/dL AST (5-31) U/L ALT (0-31) U/L Alkaline Phosphatase (39-117) U/L Total Protein (6.5-8.0) g/dL Albumin (3.5-5.0) g/dL Lipase (8-78) U/L Urine Color YELLOW Urine Appearance CLEAR Urine pH 6.0 (5.0-8.0) Ur Specific [place] 1.010 (1.005-1.025) Urine Protein TRACE (NEG-TRACE) MG/DL Urine Glucose (UA) >=1000 H (NEG) MG/DL Urine Ketones NEG (NEG) MG/DL Urine Blood TRACE (NEG) Urine Nitrite NEG (NEG) Ur Leukocyte Esterase NEG (NEG) Urine RBC 0-2 (0) /HPF Urine WBC 1-4 (0-4) /HPF Ur Squamous Epith Cells TRACE /LPF Urine Bacteria NONE /LPF COVID-19 (JOSE) (Negative) COVID-19 Clin Com 09/11/21 09/12/21 09/12/21 Range/Units 20:59 00:14 00:20 WBC (4.8-10.8) X10*3/uL RBC (4.20-5.50) X10*6/uL Hgb (12.0-16.0) g/dl Hct (37.0-47.0) % MCV (80.0-98.0) fL MCH (27.0-33.0) pg MCHC (31.0-35.0) g/dl RDW (11.0-16.0) % Plt Count (160-400) X10*3/uL MPV (9.4-12.3) fL Immature Gran % (Auto) (0.0-0.4) % Neut % (Auto) (45-73) % Lymph % (Auto) (20-40) % [place] % (Auto) (2-11) % Eos % (Auto) (0-4) % Baso % (Auto) (0-2) % Lymph # (Auto) (1.2-4.9) X10*3/uL [place] # (Auto) (0.1-1.2) X10*3/uL Eos # (Auto) (0.0-0.4) X10*3/uL Baso # (Auto) (0.0-0.2) X10*3/uL Abs Immat Gran (auto) (0.00-0.03) X10*3/uL Absolute Neuts (auto) (2.0-8.3) x10*3/uL Absolute Nucleated RBC (0.0-0.012) X10*3/uL Nucleated RBC % (auto) (0.0-0.2) /100WBC PT (9.9-13.0) SEC INR (0.9-1.1) Sodium 135 (135-145) mmol/L Potassium 3.3 (3.3-5.1) mmol/L Chloride 101 (96-108) mmol/L Carbon Dioxide 26 (22-29) mmol/L Anion Gap 11 L (12-20) BUN 22 H (9-16) mg/dL Creatinine 1.50 H (0.5-1.4) mg/dL Estim Creat Clear Calc 28.5 Estimated GFR 34 POC Glucose 325 H 281 H (60-115) mg/dL Random Glucose 302 H (60-115) mg/dL Lactic Acid (0.5-2.0) mmol/L Calcium 9.1 D (8.4-10.2) mg/dL Total Bilirubin (0.0-1.0) mg/dL Direct Bilirubin (0.0-0.5) mg/dL AST (5-31) U/L ALT (0-31) U/L Alkaline Phosphatase (39-117) U/L Total Protein (6.5-8.0) g/dL Albumin (3.5-5.0) g/dL Lipase (8-78) U/L Urine Color Urine Appearance Urine pH (5.0-8.0) Ur Specific [place] (1.005-1.025) Urine Protein (NEG-TRACE) MG/DL Urine Glucose (UA) (NEG) MG/DL Urine Ketones (NEG) MG/DL Urine Blood (NEG) Urine Nitrite (NEG) Ur Leukocyte Esterase (NEG) Urine RBC (0) /HPF Urine WBC (0-4) /HPF Ur Squamous Epith Cells /LPF Urine Bacteria /LPF COVID-19 (JOSE) (Negative) COVID-19 Clin Com Imaging Data Chest x-ray: Attestation: I personally reviewed and interpreted this imaging study as follows: Radiologist's impression: EXAMINATION: PORTABLE CHEST 1 VIEW CLINICAL INFORMATION: abd pain . COMPARISON: 11/04/2019. TECHNIQUE: Portable frontal view of the chest was obtained. FINDINGS: The lungs are well expanded. No focal infiltrate, effusion, edema, or pneumothorax. Cardiac and mediastinal silhouettes are within normal limits for technique. No acute bony abnormality seen. XR/XR chest 1V IMPRESSION: No evidence of acute disease. ? Abdominal U/S: Attestation: I personally reviewed and interpreted this imaging study as follows: Radiologist's impression: EXAMINATION: US ABDOMEN COMPLETE CLINICAL INFORMATION: Right upper quadrant pain. Elevated enzymes.. COMPARISON: MR abdomen 06/28/2018. CT scan abdomen pelvis 06/27/2018 TECHNIQUE: Real-time imaging of the abdominal viscera. Carotid Doppler exam was used. FINDINGS: PANCREAS: Normal. ABDOMINAL AORTA: The proximal, mid, and distal segments are normal in caliber. INFERIOR VENA CAVA: Visualized portions are normal. LIVER: Normal. The liver is normal in size. The liver contour is normal. Parenchymal echogenicity is normal. No focal hepatic lesion. There is no intrahepatic biliary duct dilatation seen. GALLBLADDER: Status post cholecystectomy. No fluid collection at the gallbladder bed. COMMON BILE DUCT: Normal in caliber measuring 0.7 cm in diameter. (Choledocholithiasis noted on MR study of 06/28/2018. The CBD measures 1.2 cm on the prior MR exam.) RIGHT KIDNEY: Normal. No hydronephrosis. No renal calculi or focal parenchymal lesions. The kidney measures 10.4 cm in maximum dimension. LEFT KIDNEY: Normal. No hydronephrosis. No renal calculi or focal parenchymal lesions. The kidney measures 10.5 cm in maximum dimension. SPLEEN: Normal. The spleen measures 9.1 cm in maximum dimension. FREE FLUID: None. US/US abdomen complete IMPRESSION: No acute abnormality ultrasound of abdomen. Status post cholecystectomy. There is no bile duct dilatation. MRCP may be helpful for further assessment. Abdomen pelvis CT: Attestation: I personally reviewed and interpreted this imaging study as follows: Radiologist's impression: FINDINGS: LUNG BASES: Minimal dependent atelectasis. LIVER, GALLBLADDER, BILIARY TREE: Air in the biliary ductal system likely secondary to prior papillotomy. No focal hepatic lesions seen on this noncontrast study.? Gallbladder surgically absent. PANCREAS: Unremarkable. SPLEEN: Unremarkable. ADRENAL GLANDS: There is a stable 1.8 cm left adrenal adenoma similar to the prior study. Contralateral right adrenal gland unremarkable. KIDNEYS AND URETERS: The kidneys are normal in size, shape, and attenuation. No hydronephrosis, hydroureter, or obstructing calculi seen. Mild vascular calcification noted No perinephric stranding. BLADDER: Unremarkable. GASTROINTESTINAL TRACT: Scattered colonic diverticulosis but no evidence for diverticulitis. Normal-appearing appendix in the right lower quadrant. ABDOMINAL WALL: No significant hernia is appreciated. LYMPHOVASCULAR STRUCTURES: Extensive vascular calcification within the aorta iliac system and mesenteric vessels. Bilateral iliac and distal aortic stents are seen.. PELVIC VISCERA: Unremarkable. OSSEUS STRUCTURES: Unremarkable. CT/CT abdomen pelvis wo con IMPRESSION: Chronic appearing changes similar to the prior study. I do not appreciate any acute superimposed process. Critical Care Time Critical Care Time Critical Care Time: Yes Total Critical Care Time: 45 Attestation: I have personally provided critical care time exclusive of time spent on separately billable procedures. Time includes review of laboratory data, radiology results, discussion with consultants, and monitoring for potential decompensation. Interventions were performed as documented. Discharge Plan Discharge Clinical Impression: Viral infection, COVID-19, Acute dehydration Abdominal pain Qualifiers: Abdominal location: generalized Qualified Code(s): R10.84 - Generalized abdominal pain Patient Disposition: Home, Self-Care Instructions: Abdominal Pain (ED), Dehydration (ED), Viral Syndrome (ED), COVID-19 (Coronavirus Disease 2019) (ED), Covid-19 Viral Syndrome and Novel Coronavirus (ED) Hey/Ath Additional Instructions: Fue evaluado por m?ltiples quejas. Cabrales prueba de COVID fue positiva. La tomograf?a computarizada del abdomen y la pelvis es negativa para hallazgos agudos. La ecograf?a del abdomen es negativa, sin embargo, se sugiere que realice un seguimiento con cabrales m?dico de atenci?n primaria para que lo derive mars paciente ambulatorio para CPRM. La radiograf?a de t?rax es normal. No hay indicios de neumon?a en pavel momento. Si galilea s?ntomas empeoran, regrese al departamento de emergencias de inmediato. Spooner Tylenol 650 mg cada 6 horas seg?n sea necesario para controlar la fiebre y el dolor. Beber mucho l?quido. Mantener el aislamiento social seg?n las pautas estatales y federales. [place]otsna por elegir pavel departamento de emergencias para cabrales evaluaci?n. Naty un seguimiento con cabrales m?dico de atenci?n primaria seg?n sea necesario. Regrese al departamento de emergencias por cualquier s?ntoma nuevo, preocupante o que empeore You were evaluated for multiple complaints. Your COVID test was positive. CT scan of the abdomen and pelvis is negative for acute findings. Ultrasound of the abdomen is negative, however it is suggested that you follow-up with her primary care physician for outpatient referral for MRCP. Chest x-ray is normal. No indication of pneumonia at this time. If your symptoms worsen, please return to the emergency department immediately. Please take Tylenol 650 mg every 6 hours as needed for fever and pain control. Drink plenty of fluids. Maintain social isolation per State and Federal guidelines. Thank you for choosing this emergency department for evaluation. Please follow-up with primary care physician as needed. Return to the emergency department for any new, concerning, or worsening symptoms. Prescriptions: No Action Trulicity 1.5 mg/0.5 mL pen injector 1.5 mg subcut QWEEK 30 Days Qty: 2.5 RF: 4 ondansetron 4 mg tablet,disintegrating 4 mg PO ONCE PRN (Reason: nausea and vomiting) Qty: 10 RF: 0 meclizine 25 mg tablet 25 mg PO Q6-8H PRN (Reason: dizziness) Qty: 20 RF: 0 atenolol 50 mg tablet 50 mg PO DAILY RF: 0 gabapentin 400 mg capsule 400 mg PO BID RF: 0 Lantus Solostar U-100 Insulin 100 unit/mL (3 mL) insulin pen 56 unit subcut QPM RF: 0 insulin aspart U-100 100 unit/mL (3 mL) insulin pen 10 unit subcut TID RF: 0 (DME) pen needle, diabetic 32 gauge x 5/32 needle See Rx Instructions ea .ROUTE .MEDSUPPLY Qty: 50 RF: 0 calcium carbonate-vitamin D3 500 mg(1,250mg) -400 unit tablet 0 tab PO RF: 0 loratadine 10 mg tablet 10 mg PO DAILY RF: 0 losartan 100 mg tablet 100 mg PO DAILY RF: 0 aspirin 81 mg tablet,chewable 1 tab PO DAILY RF: 0 pantoprazole 40 mg tablet,delayed release (DR/EC) 40 mg PO DAILY RF: 0 amlodipine 5 mg tablet 5 mg PO DAILY RF: 0 (DME) FreeStyle Lite Strips Strip See Rx Instructions ea Not Applicable .MEDSUPPLY Qty: 10 RF: 0 rosuvastatin 10 mg tablet 10 mg PO BEDTIME RF: 0 cilostazol 50 mg tablet 50 mg PO BID RF: 0 chlorthalidone 50 mg tablet 50 mg PO DAILY RF: 0 cimetidine 200 mg tablet 200 mg PO BID RF: 0 alcohol swabs Pads, Medicated 0 pad topical RF: 0 Referrals: Oriana Botello MD [Primary Care Provider] - 2 days (Outpatient referral for MRCP for abdominal pain.)
[2021-09-11] MEDS: 0.9 % Sodium Chloride 1,000 ML 999 ML IVCONT (20:39)
[2021-09-11] MEDS: cefTRIAXone sodium 1 GM in 0.9 % Sodium Chloride 50 ML IV (20:39)
[2021-09-11] MEDS: Insulin Glargine,Hum.rec.anlog 100 UNIT/ML 10 ML VIAL 30 UNIT SUBCUT (21:02)
[2021-09-11 21:08] LABS: Glucose, Whole Blood 325 mg/dL (60-115)
[2021-09-11 23:35] VITALS: BP 139/47; PULSE 71; RESP 16; TEMP 36.8
[2021-09-11 23:49] VITALS: O2SAT 98
[2021-09-12 00:23] LABS: Glucose, Whole Blood 281 mg/dL (60-115)
[2021-09-12 00:55] LABS: Anion Gap 11 (12-20); Blood Urea Nitrogen 22 mg/dL (9-16); Calcium 9.1 mg/dL (8.4-10.2); Carbon Dioxide 26 mmol/L (22-29); Chloride 101 mmol/L (96-108); Creatinine Clr Calc Pharmacy 28.5; Estimated Glomerular Filt Rate 34; Glucose Random 302 mg/dL (60-115); Potassium 3.3 mmol/L (3.3-5.1); Sodium 135 mmol/L (135-145)
== END 2021-09-12 01:57 | disposition home or self-care (01) ==
PROVIDERS: Nurse Practitioner Family; Emergency Provider Emergency Medicine Emergency Medical Services; PCP Internal Medicine
DX: U07.1 COVID-19 (principal); J15.0 Pneumonia due to Klebsiella pneumoniae; B34.9 Viral infection, unspecified; E86.0 Dehydration; R10.84 Generalized abdominal pain; R50.9 Fever, unspecified; E11.9 Type 2 diabetes mellitus without complications; I10 Essential (primary) hypertension; E78.5 Hyperlipidemia, unspecified; F17.200 Nicotine dependence, unspecified, uncomplicated; Z90.49 Acquired absence of other specified parts of digestive tract; Z79.4 Long term (current) use of insulin; Z79.899 Other long term (current) drug therapy; Z79.82 Long term (current) use of aspirin; Z79.02 Long term (current) use of antithrombotics/antiplatelets
CPT/HCPCS: 36415; 71045; 74176; 76700; 80048; 80053; 81001; 82248; 82947; 83605; 83690; 85025; 85610; 87040; 87077; 87186; 87205; 87635; 96361; 96374; 99284; 99291; J0696

== ENCOUNTER 2021-09-16 11:19 | Emergency (ER) | payer MEDICARE, SELFPAY ==
--- NOTE | ~2021-09-16 | CT_ITS ---
EXAMINATION: CT ABDOMEN AND PELVIS WITHOUT CONTRAST CLINICAL INFORMATION: Left back pain/flank pain. COMPARISON: None TECHNIQUE: Multidetector volumetric imaging was performed from the superior aspect of the liver through the pubic symphysis. Sagittal and coronal reformatted images were obtained on the technologist's workstation. This CT examination was performed using dose optimization techniques as appropriate, variously including the following: *Automated exposure control *Adjustment of mA and/or kV according to patient size (this includes techniques or standardized protocols for targeted exams where dose is matched to indication/reason for exam; i.e. extremities or head) *Use of iterative reconstruction technique DLP: 406 mGy-cm FINDINGS: LUNG BASES: The lung bases are clear except for a 4 mm nodule right middle lobe axial image 8/25 and minimal compressive atelectasis in both lung bases. The heart size is normal. There are coronary artery calcifications present. LIVER, GALLBLADDER, AND BILIARY TREE: The liver is normal in size, shape, and attenuation. There is pneumobilia. The gallbladder is unremarkable with no evidence of radiopaque gallstones, gallbladder wall thickening, or obvious pericholecystic inflammatory changes. PANCREAS: Unremarkable. SPLEEN: Unremarkable. ADRENAL GLANDS: There is a 2.5 x 1.7 cm lesion left adrenal gland measuring 7 Hounsfield units, likely benign adenoma. Previously, it measured same size. The right adrenal gland is unremarkable. KIDNEYS AND URETERS: The kidneys are normal in size, shape, and attenuation. There is a nonobstructive radiopaque calculi lower pole right kidney. There is a nonobstructed small 3 mm radiopaque calculi mid pole left kidney. BLADDER: There is mild prominence of the left distal ureter extending into the UV junction. Mild focal mural thickening is seen at this UV junction. The right distal ureter is unremarkable. Mild diffuse bladder wall thickening is seen. No radiopaque calculi. GASTROINTESTINAL TRACT: There is scattered stool and gas seen throughout the colon. The appendix is visualized in the right lower quadrant. ABDOMINAL WALL: No significant hernia is appreciated. LYMPH NODES: Normal. VASCULAR: Unremarkable. PELVIS: Again visualized is an anteverted uterus with anterior calcified fibroid. OSSEOUS STRUCTURES: Unremarkable. CT/CT abdomen pelvis wo con IMPRESSION: Left adrenal adenoma, stable. Diffuse bladder wall thickening with nonspecific mild prominence of distal ureter and mild mural thickening at the left UV junction. Recommend cystoscopy. No radiopaque renal calculi or hydronephrosis seen. Mild constipation. Pneumobilia. Nonobstructive stone mid pole right kidney, stable. Fleischner guidelines were followed.
--- NOTE | ~2021-09-16 | XR_ITS ---
EXAMINATION: XR CHEST CLINICAL INFORMATION: Covid positive. Blood cultures are positive. SOB. COMPARISON: Chest 09/11/2021 TECHNIQUE: Frontal view of the chest was obtained. FINDINGS: The lungs are well-expanded and clear. The heart size and pulmonary vascularity is normal. There is mild levoscoliosis of dorsal spine with moderate spondylosis. XR/XR chest 1V IMPRESSION: No acute cardiopulmonary process seen.
[2021-09-16 11:57] VITALS: BP 156/38; PULSE 60; RESP 18; TEMP 36.8; O2SAT 100; BMI 26.4
--- NOTE | 2021-09-16 12:03 | ECG_ITS ---
Test Reason : positive blood culture Blood Pressure : / mmHG Vent. Rate : 058 BPM Atrial Rate : 058 BPM P-R Int : 176 ms QRS Dur : 086 ms QT Int : 430 ms P-R-T Axes : 030 -12 023 degrees QTc Int : 422 ms Sinus bradycardia Moderate voltage criteria for LVH, may be normal variant ( R in aVL , Yusuf product ) Borderline ECG When compared with ECG of 17-AUG-2021 14:12, No significant change was found Referred By: Chelsey Saenz Electronically Signed By:KELVIN GREGORY
--- NOTE | 2021-09-16 12:45 | ED.RECABL ---
HPI - Recheck/Abnormal Lab/Rx General Chief Complaint: Recheck/Abnormal Lab/Rx Stated Complaint: positive blood culture Time Seen by Provider: 09/16/21 12:03 Source: patient Mode of arrival: ambulatory Limitations: language barrier (Colombian-speaking) History of Present Illness HPI narrative: 71-year-old female with a past medical history of multinodular thyroid, hyperlipidemia, hypertension, diabetes who was recently diagnosed with COVID-19 on 09/11/2021 presenting to the ED after I called her back due to positive blood cultures 1/2 sets of Klebsiella pneumonia. Patient reports that her fevers have already resolved on Wednesday. She reports that she continues to have intermittent left lower back pain. Otherwise denies any other symptoms including fevers, chills, dizziness, headaches, neck pain/stiffness, trouble swallowing or breathing, sore throat, cough, nausea/vomiting/diarrhea, abdominal pain, dysuria, hematuria, abnormal vaginal discharge, rashes or any other symptoms complaints or concerns at this time. MD complaint: abnormal lab (Positive blood cultures of Klebsiella pneumonia) Initial visit (ago): day(s) (5) Returns today for: needs IV antibiotics Symptoms since prior visit: no new symptoms Context: called for abnormal lab result Associated symptoms: none Related Data Home Medications Medication Instructions Recorded Confirmed amlodipine 5 mg tablet 5 mg PO DAILY 07/24/20 09/16/21 aspirin 81 mg chewable tablet 1 tab PO DAILY 07/24/20 09/16/21 atenolol 50 mg tablet 50 mg PO DAILY 07/24/20 09/16/21 blood sugar diagnostic #10 ea 07/24/20 07/24/20 calcium carbonate 500 mg-vitamin 1 tab PO BID 07/24/20 09/16/21 D3 10 mcg (400 unit) tablet chlorthalidone 50 mg tablet 50 mg PO DAILY 07/24/20 09/16/21 cimetidine 200 mg tablet 200 mg PO BID 07/24/20 09/16/21 gabapentin 400 mg capsule 400 mg PO BID cap 07/24/20 09/16/21 insulin aspart U-100 100 unit/mL 24 unit SUBCUT BID@0800,1200 ml 07/24/20 09/16/21 (3 mL) subcutaneous pen insulin glargine 100 unit/mL (3 68 unit SUBCUT QPM ml 07/24/20 09/16/21 mL) subcutaneous pen loratadine 10 mg tablet 10 mg PO DAILY 07/24/20 09/16/21 losartan 100 mg tablet 100 mg PO DAILY 07/24/20 09/16/21 pantoprazole 40 mg tablet,delayed 40 mg PO DAILY 07/24/20 09/16/21 release pen needle, diabetic 32 gauge x #50 ea 07/24/20 07/24/20 rosuvastatin 10 mg tablet 10 mg PO BEDTIME 07/24/20 09/16/21 insulin aspart U-100 100 unit/mL 26 unit SUBCUT DAILY@1700 09/16/21 09/16/21 (3 mL) subcutaneous pen (Novolog Flexpen U-100 Insulin aspart) Previous Rx's Medication Instructions Recorded dulaglutide 1.5 mg/0.5 mL 1.5 mg (0.5 mL) SUBCUT QWEEK 30 08/12/21 subcutaneous pen injector Days #2.5 ml (Trulicity) meclizine 25 mg tablet 25 mg PO Q6-8H PRN #20 tab 08/17/21 ondansetron 4 mg disintegrating 4 mg PO ONCE PRN #10 tab 08/17/21 tablet cefuroxime axetil 500 mg tablet 500 mg PO BID 14 Days #28 tab 09/16/21 Allergies Allergy/AdvReac Type Severity Reaction Status Date / Time No Known Allergies Allergy Verified 09/11/21 18:42 Review of Systems Review of Systems: Constitutional : No Weight loss, No Fever, No Chills, No Night Sweats, No Fatigue, No Malaise ENT/Mouth : No Hearing loss, No Ear Pain, No Nasal Congestion, No Sinus Pain, No Hoarseness, No sore throat, No Rhinorrhea, No Swallowing Difficulty Eyes: No Eye Pain, No Swelling, No Redness, No Foreign Body, No Discharge, No Vision Changes Cardiovascular : No Chest Pain, No SOB, No Dyspnea on Exertion, No Orthopnea, No Edema, No Palpitations Respiratory : No Cough, No Sputum, No Wheezing, No Smoke Exposure, No Dyspnea Gastrointestinal : No Nausea, No Vomiting, No Diarrhea, No Constipation, No abdominal Pain, No Hematochezia, No Melena Genitourinary : no irregular bleeding, No Dysuria, No Urinary Frequency, No Hematuria, No Urinary Incontinence, No Urgency, No Flank Pain, No Urinary Flow Changes, No Hesitancy Musculoskeletal : No joint pain, No Myalgias, No Joint Swelling Skin : No Skin Lesions, No rash Neuro : No Weakness, No Numbness, No Paresthesias, No Loss of Consciousness, No Dizziness, No Headache Psych : No Anxiety/Panic, No Depression, No SI/HI/AH/VH, No Social Issues, Heme/Lymph: No Bruising, No Bleeding,No Lymphadenopathy Endocrine : No Polyuria, No Polydipsia, No Temperature Intolerance Yes all other systems are reviewed and are negative [facility] Past Medical History Attestation statement: The following information was validated with the patient. Medical History HLD (hyperlipidemia) HTN (hypertension) Multinodular thyroid T2DM (type 2 diabetes mellitus) Vitamin D deficiency Surgical History History of cholecystectomy Hx of colonoscopy Hx of endoscopic retrograde cholangiopancreatography Hx of tubal ligation Family History Family History Father Emphysema of lung Mother No problems noted. Social History Social History Alcohol intake: never Patient Tobacco Use Status: Never used Tobacco Cigarette Packs Per Day: 1 Years Smoked: 20 Use of substances other than those prescribed or required for medical reasons: No Advance Directives: No Advance Directives Information Provided: No Physical Exam Vital Signs: Vital Signs: Last Vital Signs Temp 99.0 F 09/16/21 14:34 Pulse 58 09/16/21 14:23 Resp 18 09/16/21 14:23 BP 167/44 H 09/16/21 14:23 Pulse Ox 95 09/16/21 13:40 BMI result Body Mass Index 26.4 vital signs have been reviewed as normal and appeared to be correct. Blood pressure normal. Heart rate normal. Respiration rate normal. Temperature normal. Oxygen saturation normal. Appearance: Alert. Oriented X3. No acute distress. Head: Normal external exam. Normocephalic. Eyes: PERRLA. EOMI. Conjunctiva and sclera normal. Eyelids normal. ENT: Pharynx normal. Uvula midline. Moist mucous membranes. No trismus noted. No drooling noted. No muffled voice noted. Neck: Normal inspection. Neck supple. FROM. No adenopathy. No meningeal signs. CVS: Normal heart rate and rhythm. Heart sound normal. No murmurs noted. Pulses normal throughout. Respiratory: No respiratory distress. Painless inspiration. Breath sounds normal. No wheezes/rales/rhonchi noted. Chest nontender. No accessory muscle usage noted or decreased air movement noted. Abdomen: Soft and nontender. Nondistended. No guarding. No rigidity. Bowel sounds normal in all 4 quadrants. No distention noted. No organomegaly noted. No visible injury noted. No rebound tenderness. Negative Rovsing sign. Negative obturator's sign. Negative psoas sign. Negative Lawrence sign. Back: No CVA tenderness. Full range of motion noted. Skin: Skin warm and dry. Normal skin color. Normal skin turgor. No rashes/lesions/lacerations noted. Extremities: Extremities exhibit normal range of motion. Extremities nontender. Neuro: Oriented X 3. No motor deficit. No sensory deficit. Reflexes normal. Normal steady gait. Course Course Course Narrative: 12pm - 71-year-old female with a past medical history of multinodular thyroid, hyperlipidemia, hypertension, diabetes who was recently diagnosed with COVID-19 on 09/11/2021 presenting to the ED after I called her back due to positive blood cultures 1/2 sets of Klebsiella pneumonia. Patient reports that her fevers have already resolved on Wednesday. She reports that she continues to have intermittent left lower back pain. Plan: Labs, EKG, chest x-ray, UA, UHCG, blood cultures, lactic acid. Provide a L of IV fluids and 2 g of cefazolin. Obtain a med rec and plan to admit for positive blood cultures of Klebsiella pneumonia. Patient understands agrees with this plan. Reevaluation(s) Reevaluation #1: - labs reviewed patient no longer has an elevated white blood [place] [id number]. Patient has mild baseline anemia which is similar compared to prior. Sodium 131. BUN/creatinine 24/1.53. Random glucose 421. AST/ALT/alkaline phosphate 86/112/315 which is improved when compared to prior. Otherwise all other labs are within normal limits. UA within normal limits no evidence of UTI under revealed a 1000 glucose. - EKG is sinus bradycardia with ventricular rate of 58 with minimal voltage criteria for LVH no acute ischemic changes are noted. - chest x-ray within normal limits no acute processes are noted. - therefore I discussed this case with the hospitalist Dr. Vazquez and Dr. Darling Christensen and they reported due to patient having and sensitivity on the culture Dr. Darling Christensen reported that the patient if she is stable she can be discharged on Levaquin or Bactrim or Ceftin for 14 days. Therefore I discussed this with the patient and she would rather be discharged home with p.o. antibiotics. - therefore at this time will give 2 L of IV fluids, 2 g of cefazolin recheck the patient's chemistry if the patient's chemistry has improved will discharge the patient with p.o. antibiotics as discussed above. Patient understands and is agreeable to this plan. Time: 15:01 Reevaluation #2: - repeat chemistry improved. Patient's sodium went from 131 to 135. BUN went from 24 to 22. Creatinine went from 1.53 to 1.44. Glucose went from 421 to 332. - CT scan abdomen pelvis revealed chronic changes and they noted pneumobilia although patient reports that she had her gallbladder removed in 1985 where it ?blew up?. Therefore I consulted with Dr. Golden and he reported that this was seen on the last CT scan on 09/11/2021. I also discussed this with Dr. Era decker and he believes this is a chronic condition as well most likely related to an ERCP that she had done when she had her gallbladder removed. - patient does not have any abdominal pain the only reason I did a CT scan of abdomen pelvis without IV contrast was because she was complaining of left back pain right over the kidney. Otherwise no other acute processes were noted on the CT scan. Patient wants to go home despite me recommending admission multiple times. Therefore due to improvement in the patient's kidney function will discharge with instructions to increase her fluids and to follow-up with her primary care provider for repeat chemistry within a week to make sure that her MARYANN is improving. Along with antibiotics a Ceftin for 14 days. Patient understands agrees with this plan. Time: 16:44 [facility] - Recheck/Abnormal Lab/Rx Medical Records Attestation: I reviewed the patient's medical records. Lab Data Attestation: I reviewed the patient's lab results. Result diagrams: 09/16/21 13:24 09/16/21 16:01 Labs: Lab Results 09/16/21 09/16/21 09/16/21 Range/Units 13:23 13:24 13:24 WBC 8.7 (4.8-10.8) X10*3/uL RBC 4.34 (4.20-5.50) X10*6/uL Hgb 11.6 L (12.0-16.0) g/dl Hct 34.6 L (37.0-47.0) % MCV 79.7 L (80.0-98.0) fL MCH 26.7 L (27.0-33.0) pg MCHC 33.5 (31.0-35.0) g/dl RDW 12.9 (11.0-16.0) % Plt Count 252 (160-400) X10*3/uL MPV 11.6 (9.4-12.3) fL Immature Gran % (Auto) 0.7 H (0.0-0.4) % Neut % (Auto) 53.9 (45-73) % Lymph % (Auto) 34.6 (20-40) % Crawford % (Auto) 8.2 (2-11) % Eos % (Auto) 2.3 (0-4) % Baso % (Auto) 0.3 (0-2) % Lymph # (Auto) 3.0 (1.2-4.9) X10*3/uL Crawford # (Auto) 0.7 (0.1-1.2) X10*3/uL Eos # (Auto) 0.2 (0.0-0.4) X10*3/uL Baso # (Auto) 0.0 (0.0-0.2) X10*3/uL Abs Immat Gran (auto) 0.06 H (0.00-0.03) X10*3/uL Absolute Neuts (auto) 4.7 (2.0-8.3) x10*3/uL Absolute Nucleated RBC 0.000 (0.0-0.012) X10*3/uL Nucleated RBC % (auto) 0.0 (0.0-0.2) /100WBC Hold Purple Top SEE NOTE PT 11.7 (9.9-13.0) SEC INR 1.0 (0.9-1.1) Sodium (135-145) mmol/L Potassium (3.3-5.1) mmol/L Chloride (96-108) mmol/L Carbon Dioxide (22-29) mmol/L Anion Gap (12-20) BUN (9-16) mg/dL Creatinine (0.5-1.4) mg/dL Estim Creat Clear Calc Estimated GFR Random Glucose (60-115) mg/dL Lactic Acid (0.5-2.0) mmol/L Calcium (8.4-10.2) mg/dL Magnesium (1.6-2.6) mg/dL Total Bilirubin (0.0-1.0) mg/dL AST (5-31) U/L ALT (0-31) U/L Alkaline Phosphatase (39-117) U/L Total Protein (6.5-8.0) g/dL Albumin (3.5-5.0) g/dL Urine Color Urine Appearance Urine pH (5.0-8.0) Ur Specific [place] (1.005-1.025) Urine Protein (NEG-TRACE) MG/DL Urine Glucose (UA) (NEG) MG/DL Urine Ketones (NEG) MG/DL Urine Blood (NEG) Urine Nitrite (NEG) Ur Leukocyte Esterase (NEG) Urine RBC (0) /HPF Urine WBC (0-4) /HPF Ur Squamous Epith Cells /LPF Urine Bacteria /LPF 09/16/21 09/16/21 09/16/21 Range/Units 13:35 13:35 13:58 WBC (4.8-10.8) X10*3/uL RBC (4.20-5.50) X10*6/uL Hgb (12.0-16.0) g/dl Hct (37.0-47.0) % MCV (80.0-98.0) fL MCH (27.0-33.0) pg MCHC (31.0-35.0) g/dl RDW (11.0-16.0) % Plt Count (160-400) X10*3/uL MPV (9.4-12.3) fL Immature Gran % (Auto) (0.0-0.4) % Neut % (Auto) (45-73) % Lymph % (Auto) (20-40) % Crawford % (Auto) (2-11) % Eos % (Auto) (0-4) % Baso % (Auto) (0-2) % Lymph # (Auto) (1.2-4.9) X10*3/uL Crawford # (Auto) (0.1-1.2) X10*3/uL Eos # (Auto) (0.0-0.4) X10*3/uL Baso # (Auto) (0.0-0.2) X10*3/uL Abs Immat Gran (auto) (0.00-0.03) X10*3/uL Absolute Neuts (auto) (2.0-8.3) x10*3/uL Absolute Nucleated RBC (0.0-0.012) X10*3/uL Nucleated RBC % (auto) (0.0-0.2) /100WBC Hold Purple Top PT (9.9-13.0) SEC INR (0.9-1.1) Sodium 131 L (135-145) mmol/L Potassium 4.4 D (3.3-5.1) mmol/L Chloride 100 (96-108) mmol/L Carbon Dioxide 22 (22-29) mmol/L Anion Gap 13 (12-20) BUN 24 H (9-16) mg/dL Creatinine 1.53 H (0.5-1.4) mg/dL Estim Creat Clear Calc 28.0 Estimated GFR 34 Random Glucose 421 H* (60-115) mg/dL Lactic Acid 1.8 (0.5-2.0) mmol/L Calcium 10.2 D (8.4-10.2) mg/dL Magnesium 1.8 (1.6-2.6) mg/dL Total Bilirubin 1.0 (0.0-1.0) mg/dL AST 86 H (5-31) U/L ALT 172 H (0-31) U/L Alkaline Phosphatase 315 H D (39-117) U/L Total Protein 7.7 (6.5-8.0) g/dL Albumin 4.2 (3.5-5.0) g/dL Urine Color YELLOW Urine Appearance CLEAR Urine pH 6.0 (5.0-8.0) Ur Specific [place] <= 1.005 (1.005-1.025) Urine Protein NEG (NEG-TRACE) MG/DL Urine Glucose (UA) >=1000 H (NEG) MG/DL Urine Ketones NEG (NEG) MG/DL Urine Blood NEG (NEG) Urine Nitrite NEG (NEG) Ur Leukocyte Esterase NEG (NEG) Urine RBC 0 (0) /HPF Urine WBC 0-2 (0-4) /HPF Ur Squamous Epith Cells TRACE /LPF Urine Bacteria NONE /LPF 09/16/21 Range/Units 16:01 WBC (4.8-10.8) X10*3/uL RBC (4.20-5.50) X10*6/uL Hgb (12.0-16.0) g/dl Hct (37.0-47.0) % MCV (80.0-98.0) fL MCH (27.0-33.0) pg MCHC (31.0-35.0) g/dl RDW (11.0-16.0) % Plt Count (160-400) X10*3/uL MPV (9.4-12.3) fL Immature Gran % (Auto) (0.0-0.4) % Neut % (Auto) (45-73) % Lymph % (Auto) (20-40) % Crawford % (Auto) (2-11) % Eos % (Auto) (0-4) % Baso % (Auto) (0-2) % Lymph # (Auto) (1.2-4.9) X10*3/uL Crawford # (Auto) (0.1-1.2) X10*3/uL Eos # (Auto) (0.0-0.4) X10*3/uL Baso # (Auto) (0.0-0.2) X10*3/uL Abs Immat Gran (auto) (0.00-0.03) X10*3/uL Absolute Neuts (auto) (2.0-8.3) x10*3/uL Absolute Nucleated RBC (0.0-0.012) X10*3/uL Nucleated RBC % (auto) (0.0-0.2) /100WBC Hold Purple Top PT (9.9-13.0) SEC INR (0.9-1.1) Sodium 135 (135-145) mmol/L Potassium 4.5 (3.3-5.1) mmol/L Chloride 103 (96-108) mmol/L Carbon Dioxide 25 (22-29) mmol/L Anion Gap 12 (12-20) BUN 22 H (9-16) mg/dL Creatinine 1.44 H (0.5-1.4) mg/dL Estim Creat Clear Calc 29.7 Estimated GFR 36 Random Glucose 332 H (60-115) mg/dL Lactic Acid (0.5-2.0) mmol/L Calcium 9.5 D (8.4-10.2) mg/dL Magnesium (1.6-2.6) mg/dL Total Bilirubin (0.0-1.0) mg/dL AST (5-31) U/L ALT (0-31) U/L Alkaline Phosphatase (39-117) U/L Total Protein (6.5-8.0) g/dL Albumin (3.5-5.0) g/dL Urine Color Urine Appearance Urine pH (5.0-8.0) Ur Specific [place] (1.005-1.025) Urine Protein (NEG-TRACE) MG/DL Urine Glucose (UA) (NEG) MG/DL Urine Ketones (NEG) MG/DL Urine Blood (NEG) Urine Nitrite (NEG) Ur Leukocyte Esterase (NEG) Urine RBC (0) /HPF Urine WBC (0-4) /HPF Ur Squamous Epith Cells /LPF Urine Bacteria /LPF Imaging Data Chest x-ray: Attestation: I personally reviewed and interpreted this imaging study as follows: Radiologist's impression: FINDINGS: The lungs are well-expanded and clear. The heart size and pulmonary vascularity is normal. There is mild levoscoliosis of dorsal spine with moderate spondylosis. XR/XR chest 1V IMPRESSION: No acute cardiopulmonary process seen. CT scan abdomen pelvis without IV contrast: Attestation: I personally reviewed and interpreted this imaging study as follows: Radiologist's impression: FINDINGS: LUNG BASES: Minimal dependent atelectasis. LIVER, GALLBLADDER, BILIARY TREE: Air in the biliary ductal system likely secondary to prior papillotomy. No focal hepatic lesions seen on this noncontrast study.? Gallbladder surgically absent. PANCREAS: Unremarkable. SPLEEN: Unremarkable. ADRENAL GLANDS: There is a stable 1.8 cm left adrenal adenoma similar to the prior study. Contralateral right adrenal gland unremarkable. KIDNEYS AND URETERS: The kidneys are normal in size, shape, and attenuation. No hydronephrosis, hydroureter, or obstructing calculi seen. Mild vascular calcification noted No perinephric stranding. BLADDER: Unremarkable. GASTROINTESTINAL TRACT: Scattered colonic diverticulosis but no evidence for diverticulitis. Normal-appearing appendix in the right lower quadrant. ABDOMINAL WALL: No significant hernia is appreciated. LYMPHOVASCULAR STRUCTURES: Extensive vascular calcification within the aorta iliac system and mesenteric vessels. Bilateral iliac and distal aortic stents are seen.. PELVIC VISCERA: Unremarkable. OSSEUS STRUCTURES: Unremarkable. CT/CT abdomen pelvis wo con IMPRESSION: Chronic appearing changes similar to the prior study. I do not appreciate any acute superimposed process. ECG Data Attestation: I personally reviewed and interpreted this ECG as follows: ECG interpretation date: 09/16/21 ECG interpretation time: 01:43 Interpretation: Sinus bradycardia with ventricular rate of 58 with minimal voltage criteria for LVH no acute ischemic changes are noted. Similar compared to prior EKG 08/17/2021. Critical Care Time Critical Care Time Critical Care Time: Yes Total Critical Care Time: 60 Attestation: I personally attest to this time spent taking care of the patient Discharge Plan Discharge Clinical Impression: COVID-19, Blood bacterial culture positive, Bacteremia due to Klebsiella pneumoniae, MARYANN (acute kidney injury), Acute hyponatremia, Pneumobilia Patient Disposition: Home, Self-Care Instructions: Acute Kidney Injury (DC), Hyponatremia (ED), Bacteremia (ED) Prescriptions: New cefuroxime axetil 500 mg tablet 500 mg PO BID 14 Days Qty: 28 RF: 0 No Action Trulicity 1.5 mg/0.5 mL pen injector 1.5 mg subcut QWEEK 30 Days Qty: 2.5 RF: 4 ondansetron 4 mg tablet,disintegrating 4 mg PO ONCE PRN (Reason: nausea and vomiting) Qty: 10 RF: 0 meclizine 25 mg tablet 25 mg PO Q6-8H PRN (Reason: dizziness) Qty: 20 RF: 0 insulin aspart U-100 [Novolog Flexpen U-100 Insulin] 100 unit/mL (3 mL) insulin pen 26 unit subcut DAILY@1700 RF: 0 atenolol 50 mg tablet 50 mg PO DAILY RF: 0 gabapentin 400 mg capsule 400 mg PO BID RF: 0 Lantus Solostar U-100 Insulin 100 unit/mL (3 mL) insulin pen 68 unit subcut QPM RF: 0 insulin aspart U-100 100 unit/mL (3 mL) insulin pen 24 unit subcut BID@0800,1200 RF: 0 (DME) pen needle, diabetic 32 gauge x 5/32 needle See Rx Instructions ea .ROUTE .MEDSUPPLY Qty: 50 RF: 0 calcium carbonate-vitamin D3 500 mg(1,250mg) -400 unit tablet 1 tab PO BID RF: 0 loratadine 10 mg tablet 10 mg PO DAILY RF: 0 losartan 100 mg tablet 100 mg PO DAILY RF: 0 aspirin 81 mg tablet,chewable 1 tab PO DAILY RF: 0 pantoprazole 40 mg tablet,delayed release (DR/EC) 40 mg PO DAILY RF: 0 amlodipine 5 mg tablet 5 mg PO DAILY RF: 0 (DME) FreeStyle Lite Strips Strip See Rx Instructions ea Not Applicable .MEDSUPPLY Qty: 10 RF: 0 rosuvastatin 10 mg tablet 10 mg PO BEDTIME RF: 0 chlorthalidone 50 mg tablet 50 mg PO DAILY RF: 0 cimetidine 200 mg tablet 200 mg PO BID RF: 0 Referrals: Oriana Botello MD [Primary Care Provider] - 2 days Print Language: Colombian
[2021-09-16 13:33] LABS: MANUAL DIFF FLAG NO
[2021-09-16 13:37] LABS: Basophils Percent Auto 0.3 % (0-2); Eosinophils Absolute Auto 0.2 X10*3/uL (0.0-0.4); Eosinophils Percent Auto 2.3 % (0-4); Hematocrit 34.6 % (37.0-47.0); Hemoglobin 11.6 g/dl (12.0-16.0); Imm Gran Abs Auto 0.06 X10*3/uL (0.00-0.03); Imm Gran Pct Auto 0.7 % (0.0-0.4); Lymphocytes Percent Auto 34.6 % (20-40); Mean Corpuscular HGB Conc 33.5 g/dl (31.0-35.0); Mean Corpuscular Hemoglobin 26.7 pg (27.0-33.0); Mean Corpuscular Volume 79.7 fL (80.0-98.0); Mean Platelet Volume 11.6 fL (9.4-12.3); Monocytes Absolute Auto 0.7 X10*3/uL (0.1-1.2); Monocytes Percent Auto 8.2 % (2-11); Neutrophils Absolute Auto 4.7 x10*3/uL (2.0-8.3); Neutrophils Percent Auto 53.9 % (45-73); Platelet Count 252 X10*3/uL (160-400); Red Blood Count 4.34 X10*6/uL (4.20-5.50); Red Cell Distribution Width 12.9 % (11.0-16.0); White Blood Count 8.7 X10*3/uL (4.8-10.8)
[2021-09-16 13:40] VITALS: BP 156/63; PULSE 58; RESP 14; TEMP 36.8; O2SAT 95
[2021-09-16 13:41] LABS: Prothrombin Time 11.7 SEC (9.9-13.0)
[2021-09-16 13:50] LABS: Lactic Acid 1.8 mmol/L (0.5-2.0)
[2021-09-16 13:59] LABS: Alanine Aminotransferase 172 U/L (0-31); Albumin Level 4.2 g/dL (3.5-5.0); Alkaline Phosphatase 315 U/L (39-117); Anion Gap 13 (12-20); Aspartate Amino Transferase 86 U/L (5-31); Blood Urea Nitrogen 24 mg/dL (9-16); Calcium 10.2 mg/dL (8.4-10.2); Carbon Dioxide 22 mmol/L (22-29); Chloride 100 mmol/L (96-108); Estimated Glomerular Filt Rate 34; Glucose Random 421 mg/dL (60-115); Magnesium 1.8 mg/dL (1.6-2.6); Potassium 4.4 mmol/L (3.3-5.1); Sodium 131 mmol/L (135-145); Total Protein 7.7 g/dL (6.5-8.0)
[2021-09-16 14:10] LABS: Appearance Urine CLEAR; Color Urine YELLOW; Glucose Urine UA >=1000 MG/DL (NEG); Leukocyte Esterase Urine NEG (NEG); Nitrite Urine NEG (NEG); Specific Gravity - Urine <= 1.005 (1.005-1.025); Urine Blood NEG (NEG); Urine Ketones NEG (NEG); Urine Protein NEG (NEG-TRACE)
[2021-09-16 14:23] VITALS: BP 167/44; PULSE 58; RESP 18; TEMP 36.9
[2021-09-16 14:28] LABS: RBC Urine 0 /HPF (0); Squamous Epithelial Cell Urine TRACE /LPF; WBC Urine 0-2 /HPF (0-4)
[2021-09-16] MEDS: 0.9 % Sodium Chloride 1,000 ML 999 ML IVCONT (14:32)
[2021-09-16] MEDS: ceFAZolin Sodium/Dextrose,Iso 2 GM/50 ML PIGGYBACK IV (14:33)
[2021-09-16 14:34] VITALS: TEMP 37.2
--- NOTE | 2021-09-16 14:34 | PC.NURSE ---
rsting quietly. skin pwd. no complaints
--- NOTE | 2021-09-16 14:51 | PHA.MEDREC ---
Pharmacy Consult ? Medication Reconciliation Pharmacy has completed the medication reconciliation. Patient is a med box patient with [facility]. Contacted [facility] pharmacy to get updated medication list. Dianne Canales, DyanD
[2021-09-16 16:33] LABS: Anion Gap 12 (12-20); Blood Urea Nitrogen 22 mg/dL (9-16); Calcium 9.5 mg/dL (8.4-10.2); Carbon Dioxide 25 mmol/L (22-29); Chloride 103 mmol/L (96-108); Creatinine Clr Calc Pharmacy 29.7; Estimated Glomerular Filt Rate 36; Glucose Random 332 mg/dL (60-115); Potassium 4.5 mmol/L (3.3-5.1); Sodium 135 mmol/L (135-145)
[2021-09-16 17:20] VITALS: BP 185/68; PULSE 60; RESP 16; TEMP 36.9; O2SAT 100
== END 2021-09-16 18:17 | disposition home or self-care (01) ==
PROVIDERS: Physician Assistant Medical; Emergency Provider Emergency Medicine; PCP Internal Medicine
DX: U07.1 COVID-19 (principal); J15.0 Pneumonia due to Klebsiella pneumoniae; R79.89 Other specified abnormal findings of blood chemistry; Z79.899 Other long term (current) drug therapy
CPT/HCPCS: 36415; 71045; 74176; 80048; 80053; 81001; 83605; 83735; 85025; 85610; 87040; 93005; 96361; 96365; 99285; 99291; J0690

== ENCOUNTER 2021-09-24 11:36 | Outpatient (REF) | payer MEDICARE, SELFPAY | END 2021-09-24 11:37 | disposition home or self-care (01) | LOC: HO.10HDL 11:36 | PROVIDERS: Visit Provider Internal Medicine | DX: Z13.89 Encounter for screening for other disorder (principal) ==

== ENCOUNTER 2021-09-25 12:01 | Outpatient (REF) | payer MEDICARE, SELFPAY ==
[2021-09-25 14:03] LABS: MANUAL DIFF FLAG NO
[2021-09-25 14:09] LABS: Basophils Absolute Auto 0.1 X10*3/uL (0.0-0.2); Basophils Percent Auto 0.6 % (0-2); Eosinophils Absolute Auto 0.2 X10*3/uL (0.0-0.4); Eosinophils Percent Auto 1.9 % (0-4); Hematocrit 34.3 % (37.0-47.0); Hemoglobin 11.1 g/dl (12.0-16.0); Imm Gran Abs Auto 0.02 X10*3/uL (0.00-0.03); Imm Gran Pct Auto 0.2 % (0.0-0.4); Lymphocytes Absolute Auto 2.7 X10*3/uL (1.2-4.9); Lymphocytes Percent Auto 33.6 % (20-40); Mean Corpuscular HGB Conc 32.4 g/dl (31.0-35.0); Mean Corpuscular Hemoglobin 26.1 pg (27.0-33.0); Mean Corpuscular Volume 80.5 fL (80.0-98.0); Mean Platelet Volume 11.6 fL (9.4-12.3); Monocytes Absolute Auto 0.6 X10*3/uL (0.1-1.2); Monocytes Percent Auto 6.9 % (2-11); Neutrophils Absolute Auto 4.6 x10*3/uL (2.0-8.3); Neutrophils Percent Auto 56.8 % (45-73); Platelet Count 314 X10*3/uL (160-400); Red Blood Count 4.26 X10*6/uL (4.20-5.50); Red Cell Distribution Width 12.4 % (11.0-16.0); White Blood Count 8.1 X10*3/uL (4.8-10.8)
[2021-09-25 14:13] LABS: Estimated Average Glucose 335 mg/dL; Hemoglobin A1c % 13.3 %
[2021-09-25 14:31] LABS: Creatinine Urine 72.48 mg/dL; Microalbum/Creatinine Ratio Ur 28.9 ug/mg cr
[2021-09-25 14:46] LABS: Alanine Aminotransferase 34 U/L (0-31); Albumin Level 4.2 g/dL (3.5-5.0); Alkaline Phosphatase 132 U/L (39-117); Aspartate Amino Transferase 23 U/L (5-31); Bilirubin Direct 0.2 mg/dL (0.0-0.5); Bilirubin Total 0.4 mg/dL (0.0-1.0); Cholesterol 168 mg/dL; HDL Cholesterol 35 mg/dL; LDL Cholesterol Calculated 84 mg/dl; Total Protein 7.3 g/dL (6.5-8.0); Triglycerides 249 mg/dL
[2021-09-25 14:51] LABS: TSH reflex Free T4 0.47 uIU/mL (0.32-4.0); Vitamin D 25-OH Total 27.2 ng/mL (>30)
== END 2021-09-25 12:02 | disposition home or self-care (01) ==
LOC: HO.10HDL 12:01
PROVIDERS: Visit Provider Internal Medicine
DX: Z00.00 Encounter for general adult medical examination without abnormal findings (principal)
CPT/HCPCS: 36415; 80061; 80076; 82043; 82306; 83036; 84443; 85025

== ENCOUNTER → 2021-12-31 08:46 | Outpatient (BNVA) | payer MEDICARE, SELFPAY | PROVIDERS: PCP Internal Medicine; Visit Provider Internal Medicine | DX: E11.65 Type 2 diabetes mellitus with hyperglycemia (principal); E04.2 Nontoxic multinodular goiter; E78.5 Hyperlipidemia, unspecified; I10 Essential (primary) hypertension; Z79.4 Long term (current) use of insulin | CPT/HCPCS: Q3014 ==

== ENCOUNTER 2022-02-06 09:28 | Outpatient (REF) | payer MEDICARE, SELFPAY ==
[2022-02-06 14:46] LABS: CT PCR NOT DETECTED (Not Detect.); NG PCR NOT DETECTED (Not Detect.)
[2022-02-07 10:25] LABS: BV Int Neg Control Negative (Negative); BV Int Pos Control Positive (Positive)
== END 2022-02-06 09:29 | disposition home or self-care (01) ==
LOC: HO.LAB 09:28
PROVIDERS: PCP Internal Medicine; Visit Provider Advanced Practice Midwife
DX: Z01.419 Encounter for gynecological examination (general) (routine) without abnormal findings (principal); Z11.3 Encounter for screening for infections with a predominantly sexual mode of transmission; Z79.899 Other long term (current) drug therapy
CPT/HCPCS: 87480; 87491; 87510; 87591; 87660

== ENCOUNTER 2022-05-05 08:16 | Emergency (ER) | payer OTHER, SELFPAY ==
[2022-05-05 08:29] VITALS: BP 153/93; PULSE 58; RESP 16; TEMP 36.6; O2SAT 100; BMI 23.4
--- NOTE | 2022-05-05 09:26 | ED.BACK ---
HPI - Back Pain/Injury General Chief Complaint: Back Pain/Injury Stated Complaint: L Shoulder blade pain Time Seen by Provider: 05/05/22 09:13 Source: patient Mode of arrival: ambulatory Limitations: no limitations History of Present Illness HPI Narrative: 71-year-old female with history of HTN, HLD, DM2 who presents to the ER for evaluation of left-sided middle back pain for the last 3 days. She states she woke up with the pain on Wednesday, it was at its worst on that day. She states it is worse with movement and palpation. It is located to the outside of her left shoulder blade. Her son noticed that the area was slightly swollen and told her to come to the hospital for further evaluation. She denies any falls or injury. She denies any chest pain or shortness of breath. She denies any radiation of the pain. She has been taking Tylenol with slight improvement in the pain. MD elicited complaint: back pain Onset (ago): day(s) (3) Timing: intermittent Severity: moderate Pain scale (0-10): 5 Similar Symptoms Previously: No Quality: aching and spasming Location: left upper back Radiation: none Exacerbating factors: movement and sitting upright Relieving factors: medication Context: unknown Associated symptoms: denies other symptoms Treatments prior to arrival: acetaminophen Work related injury: No Related Data Home Medications Medication Instructions Recorded Confirmed amlodipine 5 mg tablet 5 mg PO DAILY 07/24/20 02/06/22 aspirin 81 mg chewable tablet 1 tab PO DAILY 07/24/20 02/06/22 atenolol 50 mg tablet 50 mg PO DAILY 07/24/20 02/06/22 blood sugar diagnostic #10 ea 07/24/20 02/06/22 chlorthalidone 50 mg tablet 50 mg PO DAILY 07/24/20 02/06/22 cimetidine 200 mg tablet 200 mg PO BID 07/24/20 02/06/22 gabapentin 400 mg capsule 400 mg PO BID 07/24/20 02/06/22 insulin glargine 100 unit/mL (3 68 unit subcut QPM 07/24/20 02/06/22 mL) subcutaneous pen loratadine 10 mg tablet 10 mg PO DAILY 07/24/20 02/06/22 losartan 100 mg tablet 100 mg PO DAILY 07/24/20 02/06/22 pantoprazole 40 mg tablet,delayed 40 mg PO DAILY 07/24/20 02/06/22 release pen needle, diabetic 32 gauge x #50 ea 07/24/20 02/06/22 rosuvastatin 10 mg tablet 10 mg PO BEDTIME 07/24/20 02/06/22 cholecalciferol (vitamin D3) 25 25 mcg PO DAILY 12/31/21 02/06/22 mcg (1,000 unit) capsule (Vitamin D3) empagliflozin 10 mg tablet 10 mg PO QAM 12/31/21 02/06/22 (Jardiance) insulin aspart U-100 100 unit/mL 50 unit subcut BID@0800,1200 12/31/21 02/06/22 (3 mL) subcutaneous pen insulin aspart U-100 100 unit/mL See Rx Instructions subcut 12/31/21 02/06/22 (3 mL) subcutaneous pen (Novolog DAILY@1700 Flexpen U-100 Insulin aspart) Previous Rx's Medication Instructions Recorded meclizine 25 mg tablet 25 mg PO Q6-8H PRN dizziness #20 08/17/21 tabs ondansetron 4 mg disintegrating 4 mg PO ONCE PRN nausea and 08/17/21 tablet vomiting #10 tabs miconazole nitrate 2 % vaginal 1 appful vaginal BEDTIME 7 days 02/06/22 cream (Miconazole-7) #45 grams miconazole nitrate 2 % vaginal 1 appful vaginal BEDTIME 7 days 02/06/22 cream (Miconazole-7) #45 grams cyclobenzaprine 5 mg tablet 5 mg PO TID PRN muscle spasm #10 05/05/22 tabs ibuprofen 600 mg tablet 600 mg PO Q8H PRN pain #10 tabs 05/05/22 lidocaine 5 % topical patch 1 patch topical DAILY #15 ea 05/05/22 Allergies Allergy/AdvReac Type Severity Reaction Status Date / Time No Known Allergies Allergy Verified 02/06/22 09:44 Review of Systems Review of Systems: Constitutional: No Fever, No Chills ENT/Mouth: No sore throat, No Rhinorrhea, No Swallowing Difficulty Cardiovascular: No Chest Pain, No SOB, No Orthopnea, No Edema Respiratory: No Cough, No Sputum, No Wheezing, No dyspnea Gastrointestinal: No Nausea, No Vomiting, No abdominal Pain Genitourinary: No Dysuria, No Urinary Frequency, No Hematuria Musculoskeletal: No joint pain,+ Myalgias Skin: No Skin Lesions, No rash Neuro: No Weakness, No Numbness, No Dizziness, No Headache Heme/Lymph: No Bruising, No Lymphadenopathy PMFSH Past Medical History Medical History HLD (hyperlipidemia) HTN (hypertension) Multinodular thyroid T2DM (type 2 diabetes mellitus) Vitamin D deficiency Surgical History History of cholecystectomy Hx of colonoscopy Hx of endoscopic retrograde cholangiopancreatography Hx of tubal ligation Family History Family History Father Emphysema of lung Mother No problems noted. Social History Social History Alcohol intake: never Patient Tobacco Use Status: Never used Tobacco Cigarette Packs Per Day: 1 Years Smoked: 20 Advance Directives: No Advance Directives Information Provided: Yes Physical Exam Vital Signs: Vital Signs: Last Vital Signs Temp 97.8 F 05/05/22 08:29 Pulse 58 05/05/22 08:29 Resp 16 05/05/22 08:29 BP 153/93 H 05/05/22 08:29 Pulse Ox 100 05/05/22 08:29 BMI result Body Mass Index 23.4 Appearance: Alert. Oriented X3. No acute distress. HEENT: normal inspection CVS: Normal heart rate and rhythm. Pulses normal. Respiratory: No respiratory distress. Lungs are clear throughout. Back: Mild swelling lateral to the left scapula with soft tissue tenderness and palpable muscle spasm. No midline tenderness. Normal range of motion. Skin: Skin warm and dry. Normal skin color. Normal skin turgor. No rashes. Extremities: Normal inspection x4, normal range of motion. No swelling. Neuro: Oriented X 3. No motor deficit. No sensory deficit. Course Course Course Narrative: This 71-year-old female presents to the ER for evaluation of left-sided upper back pain and swelling that started 3 days ago. Overall the pain is improved from 3 days ago with no known injury. On examination she has soft tissue tenderness and palpable muscle spasm. No chest pain or SOB. Will treat for muscle spasm. Stable for d/c home. She has an appointment with her PCP tomorrow am at 9am. Discharge Plan Discharge Clinical Impression: Thoracic back pain Patient Disposition: Home, Self-Care Instructions: Back Pain (ED) Additional Instructions: Your pain is most likely muscular in nature. Recommend rest, gentle stretching and massage. No bending, lifting or twisting. Use ice several times per day for 20 minutes at a time for the next 48 hours and then change to heat. Take medications as prescribed to help with pain and discomfort. Follow up with your Primary Care Doctor this week. If you develop new or worsening symptoms call 911 or come back to the ER for further evaluation. Prescriptions: New lidocaine 5 % adhesive patch,medicated 1 patch topical DAILY Qty: 15 0RF Rx Instructions: leave on most painful area for up to 12 hrs cyclobenzaprine 5 mg tablet 5 mg PO TID PRN (Reason: muscle spasm) Qty: 10 0RF ibuprofen 600 mg tablet 600 mg PO Q8H PRN (Reason: pain) Qty: 10 0RF No Action ondansetron 4 mg tablet,disintegrating 4 mg PO ONCE PRN (Reason: nausea and vomiting) Qty: 10 0RF meclizine 25 mg tablet 25 mg PO Q6-8H PRN (Reason: dizziness) Qty: 20 0RF insulin aspart U-100 [Novolog Flexpen U-100 Insulin] 100 unit/mL (3 mL) insulin pen See Rx Instructions subcut DAILY@1700 Rx Instructions: 10-12 Units subcut daily at 1700; atenolol 50 mg tablet 50 mg PO DAILY gabapentin 400 mg capsule 400 mg PO BID Lantus Solostar U-100 Insulin 100 unit/mL (3 mL) insulin pen 68 unit subcut QPM (DME) pen needle, diabetic 32 gauge x 5/32 needle See Rx Instructions .ROUTE .MEDSUPPLY Qty: 50 Rx Instructions: As directed loratadine 10 mg tablet 10 mg PO DAILY losartan 100 mg tablet 100 mg PO DAILY aspirin 81 mg tablet,chewable 1 tab PO DAILY pantoprazole 40 mg tablet,delayed release (DR/EC) 40 mg PO DAILY amlodipine 5 mg tablet 5 mg PO DAILY (DME) FreeStyle Lite Strips Strip See Rx Instructions Not Applicable .MEDSUPPLY Qty: 10 Rx Instructions: As directed rosuvastatin 10 mg tablet 10 mg PO BEDTIME chlorthalidone 50 mg tablet 50 mg PO DAILY cimetidine 200 mg tablet 200 mg PO BID insulin aspart U-100 100 unit/mL (3 mL) insulin pen 50 unit subcut BID@0800,1200 Label Comments: Up to 12 units for correction miconazole nitrate [Miconazole-7] 2 % cream 1 appful vaginal BEDTIME 7 Days Qty: 45 1RF miconazole nitrate [Miconazole-7] 2 % cream 1 appful vaginal BEDTIME 7 Days Qty: 45 2RF Jardiance 10 mg tablet 10 mg PO QAM cholecalciferol (vitamin D3) [Vitamin D3] 25 mcg (1,000 unit) capsule 25 mcg PO DAILY Interventions: ED Discharge Assessment Last Done: 05/05/22 09:47
== END 2022-05-05 09:47 | disposition home or self-care (01) ==
PROVIDERS: Emergency Provider Emergency Medicine; PCP Internal Medicine
DX: M54.6 Pain in thoracic spine (principal); I10 Essential (primary) hypertension; E11.9 Type 2 diabetes mellitus without complications; E78.5 Hyperlipidemia, unspecified; F17.210 Nicotine dependence, cigarettes, uncomplicated; Z79.4 Long term (current) use of insulin; Z79.899 Other long term (current) drug therapy; Z79.02 Long term (current) use of antithrombotics/antiplatelets
CPT/HCPCS: 99282; 99283

== ENCOUNTER 2022-06-30 09:04 | Outpatient (REF) | payer OTHER, SELFPAY ==
--- NOTE | ~2022-06-30 | XR_ITS ---
EXAMINATION: XR CHEST CLINICAL INFORMATION: Abnormal weight loss COMPARISON: Previous chest x-ray most recent September 2021 TECHNIQUE: 2 views of the chest were obtained. FINDINGS: No significant abnormality is noted involving the heart, lungs, mediastinum, bony thorax or soft tissues. There are degenerative changes of the spine. XR/XR chest 2V IMPRESSION: No evidence for acute disease in the chest.
== END 2022-06-30 09:05 | disposition home or self-care (01) ==
LOC: HO.XRAY 09:04
PROVIDERS: Absent Provider Internal Medicine; PCP Internal Medicine; Visit Provider Emergency Medicine
DX: R63.4 Abnormal weight loss (principal)
CPT/HCPCS: 71046

== ENCOUNTER 2022-08-05 10:55 | Outpatient (REF) | payer OTHER, SELFPAY ==
--- NOTE | ~2022-08-05 | MM_ITS ---
EXAMINATION: MM SCREENING DIGITAL BREAST TOMOSYNTHESIS, BILATERAL CLINICAL INFORMATION: Screening. Asymptomatic. The lifetime risk of breast cancer based on the Tyrer-Cuzick Model is 3%. COMPARISON: Mammography: 06/28/2020, 02/21/2019, 01/06/2018 TECHNIQUE: Digital breast tomosynthesis is performed in both the craniocaudal and mediolateral oblique views along with computer-aided detection (CAD). Synthesized 2D images are generated from the tomosynthesis. FINDINGS: There are scattered areas of fibroglandular density (ACR BI-RADS breast composition Category b). There are no significant masses, abnormal calcifications, or other abnormalities. Parenchymal pattern is similar to prior studies. There is no developing density or architectural abnormality. The axilla and skin contours are unremarkable. No significant changes. MM/MM tomosynthesis screening BI IMPRESSION: No mammographic evidence of malignancy. ASSESSMENT: BI-RADS 1: Negative RECOMMENDATION: Routine annual mammography screening. This patient's information was entered into a reminder system with a target due date for their next mammogram.
== END 2022-08-05 10:56 | disposition home or self-care (01) ==
LOC: HO.MAMMO 10:55
PROVIDERS: PCP Internal Medicine; Visit Provider Internal Medicine
DX: Z12.31 Encounter for screening mammogram for malignant neoplasm of breast (principal)
CPT/HCPCS: 77063; 77067

== ENCOUNTER 2022-08-14 11:00 | Outpatient (RCR) | payer OTHER, SELFPAY | END 2022-09-15 11:32 | disposition home or self-care (01) | LOC: HO.PTCHIC 11:00 | PROVIDERS: PCP Internal Medicine; Visit Provider Registered Nurse | DX: M25.512 Pain in left shoulder (principal) | CPT/HCPCS: 97110; 97140; 97162 ==

== ENCOUNTER 2022-10-24 13:12 | Emergency (ER) | payer OTHER, SELFPAY ==
--- NOTE | 2022-10-24 13:15 | ED_ITS ---
HPI - Female Genitourinary General Chief complaint: Urogenital-Female <Maggy Dobbs NP - Last Filed: 10/24/22 13:17> Stated complaint: vaginal area has burning sensation <Maggy Dobbs NP - Last Filed: 10/24/22 13:17> Time Seen by Provider: 10/24/22 13:47 <Maggy Dobbs NP - Last Filed: 10/24/22 13:17> Source: patient <Renea Renee CNP - Last Filed: 10/24/22 17:19> Mode of arrival: ambulatory <Renea Renee CNP - Last Filed: 10/24/22 17:19> Limitations: language barrier (Sami-speaking indoor sports centre manager utilized) <Renea Renee CNP - Last Filed: 10/24/22 17:19> History of Present Illness HPI Narrative: Patient is a 72-year-old female who presents emergency department for evaluation of dysuria and mild hematuria. Onset of symptoms was last night. Denies fevers, chills, nausea, vomiting, abdominal pain, back/flank pain, weakness. Denies concern for sexually transmitted infections. No abnormal vaginal discharge or vaginal bleeding. <Renea Renee CNP - Last Filed: 10/24/22 17:19> Related Data Home medications: Home Medications Medication Instructions Recorded Confirmed amlodipine 5 mg tablet 5 mg PO DAILY 07/24/20 02/06/22 aspirin 81 mg chewable tablet 1 tab PO DAILY 07/24/20 02/06/22 atenolol 50 mg tablet 50 mg PO DAILY 07/24/20 02/06/22 blood sugar diagnostic #10 ea 07/24/20 02/06/22 chlorthalidone 50 mg tablet 50 mg PO DAILY 07/24/20 02/06/22 cimetidine 200 mg tablet 200 mg PO BID 07/24/20 02/06/22 gabapentin 400 mg capsule 400 mg PO BID 07/24/20 02/06/22 insulin glargine 100 unit/mL (3 68 unit subcut QPM 07/24/20 02/06/22 mL) subcutaneous pen loratadine 10 mg tablet 10 mg PO DAILY 07/24/20 02/06/22 losartan 100 mg tablet 100 mg PO DAILY 07/24/20 02/06/22 pantoprazole 40 mg tablet,delayed 40 mg PO DAILY 07/24/20 02/06/22 release pen needle, diabetic 32 gauge x #50 ea 07/24/20 02/06/22 rosuvastatin 10 mg tablet 10 mg PO BEDTIME 07/24/20 02/06/22 cholecalciferol (vitamin D3) 25 25 mcg PO DAILY 12/31/21 02/06/22 mcg (1,000 unit) capsule (Vitamin D3) empagliflozin 10 mg tablet 10 mg PO QAM 12/31/21 02/06/22 (Jardiance) insulin aspart U-100 100 unit/mL 50 unit subcut BID@0800,1200 12/31/21 02/06/22 (3 mL) subcutaneous pen insulin aspart U-100 100 unit/mL See Rx Instructions subcut 12/31/21 02/06/22 (3 mL) subcutaneous pen (Novolog DAILY@1700 FlexPen U-100 Insulin aspart) Previous Rx's Medication Instructions Recorded meclizine 25 mg tablet 25 mg PO Q6-8H PRN dizziness #20 08/17/21 tabs ondansetron 4 mg disintegrating 4 mg PO ONCE PRN nausea and 08/17/21 tablet vomiting #10 tabs miconazole nitrate 2 % vaginal 1 appful vaginal BEDTIME 7 days 02/06/22 cream (Miconazole-7) #45 grams miconazole nitrate 2 % vaginal 1 appful vaginal BEDTIME 7 days 02/06/22 cream (Miconazole-7) #45 grams cyclobenzaprine 5 mg tablet 5 mg PO TID PRN muscle spasm #10 05/05/22 tabs ibuprofen 600 mg tablet 600 mg PO Q8H PRN pain #10 tabs 05/05/22 lidocaine 5 % topical patch 1 patch topical DAILY #15 ea 05/05/22 cefuroxime axetil 500 mg tablet 500 mg PO BID #14 tabs 10/24/22 <Maggy Dobbs NP - Last Filed: 10/24/22 13:17> Allergies/Adverse reactions: Allergies Allergy/AdvReac Type Severity Reaction Status Date / Time No Known Allergies Allergy Verified 02/06/22 09:44 <Maggy Dobbs NP - Last Filed: 10/24/22 13:17> Review of Systems Review of Systems: Yes all other systems are reviewed and are negative <Renea Renee CNP - Last Filed: 10/24/22 17:19> [facility] Past Medical History Attestation statement: The following information was validated with the patient. <Renea Renee CNP - Last Filed: 10/24/22 17:19> Source: old records reviewed <Renea Renee CNP - Last Filed: 10/24/22 17:19> Medical History: Medical History HLD (hyperlipidemia) HTN (hypertension) Multinodular thyroid T2DM (type 2 diabetes mellitus) Vitamin D deficiency <Maggy Dobbs NP - Last Filed: 10/24/22 13:17> Surgical History: Surgical History History of cholecystectomy Hx of colonoscopy Hx of endoscopic retrograde cholangiopancreatography Hx of tubal ligation <Maggy Dobbs NP - Last Filed: 10/24/22 13:17> Family History Family History: Family History Father Emphysema of lung Mother No problems noted. <Maggy Dobbs NP - Last Filed: 10/24/22 13:17> Social History Social History: Social History Alcohol intake: never Patient Tobacco Use Status: Never used Tobacco Cigarette Packs Per Day: 1 Years Smoked: 20 Advance Directives: No Advance Directives Information Provided: Yes <Maggy Dobbs NP - Last Filed: 10/24/22 13:17> Physical Exam Vital Signs: Vital Signs: Last Vital Signs Temp 98.6 F 10/24/22 13:16 Pulse 66 10/24/22 13:16 Resp 18 10/24/22 13:16 BP 94/77 10/24/22 13:16 Pulse Ox 99 10/24/22 13:16 O2 Del Method 10/24/22 13:16 BMI result Body Mass Index 22.6 <Maggy Dobbs NP - Last Filed: 10/24/22 13:17> Vital Signs: Last Vital Signs Temp 98.6 F 10/24/22 13:16 Pulse 66 10/24/22 13:16 Resp 18 10/24/22 13:16 BP 94/77 10/24/22 13:16 Pulse Ox 99 10/24/22 13:16 O2 Del Method 10/24/22 13:16 BMI result Body Mass Index 22.6 <Renea Renee CNP - Last Filed: 10/24/22 17:19> Appearance: Alert.?Oriented to person, place and time. No acute dist ress.?Normal affect. Eyes: Pupils equal, round and reactive to light.? ENT: Pharynx normal.?? Neck: Normal inspection.? Neck supple.?? CVS: Heart sounds normal. Normal heart rate and rhythm.? Pulses normal.?? Respiratory: No respiratory distress.? Lung sounds clear to auscultation bilaterally?? Abdomen: Soft and non-tender. Normoactive bowel sounds. ? Skin: Skin warm and dry.? Normal skin color.? Extremities: No lower extremity edema.? Neuro: Moves all extremities spontaneously. Sensation intact bilaterally. Ambulates with normal steady gait. <Renea Renee CNP - Last Filed: 10/24/22 17:19> Course Course Course Narrative: This is rapid medical exam. Deferred additional HPI, ROS, PE to primary provider. 72 yo female with history of DM, HTN, HLD here with dysuria, hematuria since last night. VSS. Not concerned for STDs. Will check UA. <Maggy Dobbs NP - Last Filed: 10/24/22 13:17> Medical Decision Making Medical Decision Making MDM Narrative: Patient is a 72-year-old female with past medical history of hypertension, hyperlipidemia, diabetes who presents emergency department for evaluation of dysuria and hematuria. Overall she is well-appearing, nontoxic, afebrile without tachycardia. Denies any rash or lesions to the genital area, declined genital examination, lower suspicion for fourniers gangrene, candidal infection. Declines genital examination at this time. Reviewed urinalysis obtained from rapid medical examination, which is consistent with urinary tract infection. Not consistent with pyelonephritis, no CVA tenderness, low suspicion for ureteral calculi, obstructive calculi, microscopic hematuria likely in relation to UTI. Discussed plan of care for discharge, prescription for antibiotics sent to patient's pharmacy, discussed worrisome signs and symptoms that would warrant re-evaluation in the emergency department, advised outpatient follow-up with primary care provider for persistent symptoms. <Renea Renee CNP - Last Filed: 10/24/22 17:19> Differential Diagnosis Differential Diagnoses: The differential diagnosis associated with the presentation includes (Urinary tract infection, pelvic infection, pyelonephritis, Megan, bacterial vaginosis) <Renea Renee CNP - Last Filed: 10/24/22 17:19> Lab Data MDM Lab Attestation statement: I reviewed the patient's lab results. <Renea Renee CNP - Last Filed: 10/24/22 17:19> Labs: Lab Results 10/24/22 Range/Units 13:35 Urine Color Yellow Urine Appearance Cloudy Urine pH 7.0 (5.0-9.0) Ur Specific [place] 1.025 (1.005-1.025) Urine Protein Negative (Neg-Trace) mg/dL Urine Glucose (UA) >=1000 H (Negative) mg/dL Urine Ketones Negative (Negative) mg/dL Urine Blood Moderate (2+) H (Negative) Urine Nitrite Negative (Negative) Ur Leukocyte Esterase Moderate (2+) H (Negative) Urine RBC >20 H (0-2) /HPF Urine WBC >50 H (0-5) /HPF Ur Squamous Epith Cells 0-2 (0-2) /HPF Urine Bacteria None Seen (None Seen) Hyaline Casts 0-2 (0-2) /LPF <Maggy Dobbs NP - Last Filed: 10/24/22 13:17> Lab Results 10/24/22 Range/Units 13:35 Urine Color Yellow Urine Appearance Cloudy Urine pH 7.0 (5.0-9.0) Ur Specific [place] 1.025 (1.005-1.025) Urine Protein Negative (Neg-Trace) mg/dL Urine Glucose (UA) >=1000 H (Negative) mg/dL Urine Ketones Negative (Negative) mg/dL Urine Blood Moderate (2+) H (Negative) Urine Nitrite Negative (Negative) Ur Leukocyte Esterase Moderate (2+) H (Negative) Urine RBC >20 H (0-2) /HPF Urine WBC >50 H (0-5) /HPF Ur Squamous Epith Cells 0-2 (0-2) /HPF Urine Bacteria None Seen (None Seen) Hyaline Casts 0-2 (0-2) /LPF <Renea Renee CNP - Last Filed: 10/24/22 17:19> External Record Review External record reviewed: Outpatient record <Renea Renee CNP - Last Filed: 10/24/22 17:19> Prescription Management I considered prescription management with: Antibiotic <Renea Renee CNP - Last Filed: 10/24/22 17:19> Discharge Plan Discharge Clinical Impression: Urinary tract infection <Maggy Dobbs NP - Last Filed: 10/24/22 13:17> Patient Disposition: Home, Self-Care <Maggy Dobbs NP - Last Filed: 10/24/22 13:17> Instructions: Urinary Tract Infection in Older Adults (ED) <Maggy Dobbs NP - Last Filed: 10/24/22 13:17> Additional Instructions: Complete entire course of antibiotics as prescribed. Be sure to stay well hydrated. Follow-up with primary care provider as needed for persistent symptoms. You may return back to emergency department with any new or worsening symptoms or concerns. This includes but is not limited to fevers, chills, nausea with persistent vomiting, abdominal pain, increasing blood in urine, worsening pain, inability to urinate, back pain. <Maggy Dobbs NP - Last Filed: 10/24/22 13:17> Prescriptions: New cefuroxime axetil 500 mg tablet 500 mg PO BID Qty: 14 0RF No Action lidocaine 5 % adhesive patch,medicated 1 patch topical DAILY Qty: 15 0RF Rx Instructions: leave on most painful area for up to 12 hrs cyclobenzaprine 5 mg tablet 5 mg PO TID PRN (Reason: muscle spasm) Qty: 10 0RF ibuprofen 600 mg tablet 600 mg PO Q8H PRN (Reason: pain) Qty: 10 0RF ondansetron 4 mg tablet,disintegrating 4 mg PO ONCE PRN (Reason: nausea and vomiting) Qty: 10 0RF meclizine 25 mg tablet 25 mg PO Q6-8H PRN (Reason: dizziness) Qty: 20 0RF insulin aspart U-100 [Novolog FlexPen U-100 Insulin] 100 unit/mL (3 mL) insulin pen See Rx Instructions subcut DAILY@1700 Rx Instructions: 10-12 Units subcut daily at 1700; atenolol 50 mg tablet 50 mg PO DAILY gabapentin 400 mg capsule 400 mg PO BID Lantus Solostar U-100 Insulin 100 unit/mL (3 mL) insulin pen 68 unit subcut QPM (DME) pen needle, diabetic 32 gauge x 5/32 needle See Rx Instructions .ROUTE .MEDSUPPLY Qty: 50 Rx Instructions: As directed loratadine 10 mg tablet 10 mg PO DAILY losartan 100 mg tablet 100 mg PO DAILY aspirin 81 mg tablet,chewable 1 tab PO DAILY pantoprazole 40 mg tablet,delayed release (DR/EC) 40 mg PO DAILY amlodipine 5 mg tablet 5 mg PO DAILY (DME) FreeStyle Lite Strips Strip See Rx Instructions Not Applicable .MEDSUPPLY Qty: 10 Rx Instructions: As directed rosuvastatin 10 mg tablet 10 mg PO BEDTIME chlorthalidone 50 mg tablet 50 mg PO DAILY cimetidine 200 mg tablet 200 mg PO BID insulin aspart U-100 100 unit/mL (3 mL) insulin pen 50 unit subcut BID@0800,1200 Label Comments: Up to 12 units for correction miconazole nitrate [Miconazole-7] 2 % cream 1 appful vaginal BEDTIME 7 Days Qty: 45 1RF miconazole nitrate [Miconazole-7] 2 % cream 1 appful vaginal BEDTIME 7 Days Qty: 45 2RF Jardiance 10 mg tablet 10 mg PO QAM cholecalciferol (vitamin D3) [Vitamin D3] 25 mcg (1,000 unit) capsule 25 mcg PO DAILY <Maggy Dobbs NP - Last Filed: 10/24/22 13:17> Referrals: Oriana Botello MD [Primary Care Provider] - <Maggy Dobbs NP - Last Filed: 10/24/22 13:17> Interventions: ED Discharge Assessment Last Done: 10/24/22 15:21 <Maggy Dobbs NP - Last Filed: 10/24/22 13:17> Discharge Date/Time: 10/24/22 15:22 <Maggy Dobbs BIN CLEANER - Last Filed: 10/24/22 13:17>
[2022-10-24 13:16] VITALS: BP 94/77; PULSE 66; RESP 18; TEMP 37; O2SAT 99; BMI 22.6
[2022-10-24 13:43] LABS: Appearance Urine Cloudy; Color Urine Yellow; Glucose Urine UA >=1000 mg/dL (Negative); Leukocyte Esterase Urine Moderate (2+) (Negative); Nitrite Urine Negative (Negative); Specific Gravity - Urine 1.025 (1.005-1.025); UMIC TRIGGER UACC YES; Urine Blood Moderate (2+) (Negative); Urine Ketones Negative (Negative); Urine Protein Negative (Neg-Trace)
[2022-10-24 13:48] LABS: Bacteria Urine None Seen (None Seen); Hyaline Casts Urine 0-2 /LPF (0-2); RBC Urine >20 /HPF (0-2); Squamous Epithelial Cell Urine 0-2 /HPF (0-2); UACC Culture Trigger YES; WBC Urine >50 /HPF (0-5)
== END 2022-10-24 15:22 | disposition home or self-care (01) ==
PROVIDERS: Nurse Practitioner Family; Emergency Provider Emergency Medicine; PCP Internal Medicine
DX: N39.0 Urinary tract infection, site not specified (principal); E11.9 Type 2 diabetes mellitus without complications; I10 Essential (primary) hypertension; E78.5 Hyperlipidemia, unspecified; Z79.82 Long term (current) use of aspirin; Z79.4 Long term (current) use of insulin; Z79.02 Long term (current) use of antithrombotics/antiplatelets; Z79.899 Other long term (current) drug therapy; Z87.891 Personal history of nicotine dependence
CPT/HCPCS: 81001; 87086; 87147; 99282; 99283

== ENCOUNTER 2023-05-05 22:17 | Emergency (ER) | payer OTHER, SELFPAY ==
--- NOTE | ~2023-05-05 | XR_ITS ---
EXAMINATION: XR SOFT TISSUE NECK CLINICAL INDICATION: Assess for foreign body. COMPARISON: None available. TECHNIQUE: 2 views of the soft tissue neck were obtained. FINDINGS: Soft tissue films of the neck demonstrate a normal larynx, pharynx and upper trachea. No soft tissue swelling or opaque foreign body is demonstrated. XR/XR soft tissue neck IMPRESSION: Unremarkable examination.
--- NOTE | ~2023-05-05 | XR_ITS ---
EXAMINATION: XR CHEST CLINICAL INFORMATION: Possible foreign body. COMPARISON: 06/30/2022 TECHNIQUE: Frontal view of the chest was obtained. FINDINGS: The cardiomediastinal silhouette is normal. There is no focal lung consolidation or pleural effusion. The bony structures and soft tissues are unremarkable. XR/XR chest 1V IMPRESSION: No active cardiopulmonary disease.
[2023-05-05 22:29] VITALS: BP 160/70; PULSE 82; RESP 18; TEMP 36.8; O2SAT 99; BMI 20.1
--- NOTE | 2023-05-06 00:18 | PC.NURSE ---
Pt aox4 resting at the bedside. No apparent distress noted. Reports eating a chicken wing around 2129 when pt felt like something was not moving from the throat. Pt reports inserting a finger in the throat to induce vomiting with no success. Reports feeling much better and that foreign object might have gone away. Pt is able to speak in full sentences and is in no respiratory distress at this time. Breaths are even regular and unlabored. Pending x-ray results and physician eval.
[2023-05-06 00:21] VITALS: BP 141/51; PULSE 75; RESP 17; TEMP 36.7; O2SAT 100
--- NOTE | 2023-05-06 01:32 | ED_ITS ---
HPI - General Adult General Chief complaint: Skin/Abscess/Foreign Body Stated complaint: chicken wing stuck in throat? Time Seen by Provider: 05/06/23 01:29 Source: patient Mode of arrival: ambulatory Limitations: no limitations History of Present Illness HPI narrative: Patient otherwise healthy with no history of dysphagia in the past had chicken without bones felt food stuck in the upper part of the throat which she later swallowed denies any stridor or difficulty swallowing was able to drink p.o. liquids when she arrived patient never had similar symptoms in the past Related Data Home Medications Medication Instructions Recorded Confirmed amlodipine 5 mg tablet 5 mg PO DAILY 07/24/20 02/06/22 aspirin 81 mg chewable tablet 1 tab PO DAILY 07/24/20 02/06/22 atenolol 50 mg tablet 50 mg PO DAILY 07/24/20 02/06/22 blood sugar diagnostic #10 ea 07/24/20 02/06/22 chlorthalidone 50 mg tablet 50 mg PO DAILY 07/24/20 02/06/22 cimetidine 200 mg tablet 200 mg PO BID 07/24/20 02/06/22 gabapentin 400 mg capsule 400 mg PO BID 07/24/20 02/06/22 insulin glargine 100 unit/mL (3 68 unit subcut QPM 07/24/20 02/06/22 mL) subcutaneous pen loratadine 10 mg tablet 10 mg PO DAILY 07/24/20 02/06/22 losartan 100 mg tablet 100 mg PO DAILY 07/24/20 02/06/22 pantoprazole 40 mg tablet,delayed 40 mg PO DAILY 07/24/20 02/06/22 release pen needle, diabetic 32 gauge x #50 ea 07/24/20 02/06/22 rosuvastatin 10 mg tablet 10 mg PO BEDTIME 07/24/20 02/06/22 cholecalciferol (vitamin D3) 25 25 mcg PO DAILY 12/31/21 02/06/22 mcg (1,000 unit) capsule (Vitamin D3) empagliflozin 10 mg tablet 10 mg PO QAM 12/31/21 02/06/22 (Jardiance) insulin aspart U-100 100 unit/mL 50 unit subcut BID@0800,1200 12/31/21 02/06/22 (3 mL) subcutaneous pen insulin aspart U-100 100 unit/mL See Rx Instructions subcut 12/31/21 02/06/22 (3 mL) subcutaneous pen (Novolog DAILY@1700 FlexPen U-100 Insulin aspart) Previous Rx's Medication Instructions Recorded meclizine 25 mg tablet 25 mg PO Q6-8H PRN dizziness #20 08/17/21 tabs ondansetron 4 mg disintegrating 4 mg PO ONCE PRN nausea and 08/17/21 tablet vomiting #10 tabs miconazole nitrate 2 % vaginal 1 appful vaginal BEDTIME 7 days 02/06/22 cream (Miconazole-7) #45 grams miconazole nitrate 2 % vaginal 1 appful vaginal BEDTIME 7 days 02/06/22 cream (Miconazole-7) #45 grams cyclobenzaprine 5 mg tablet 5 mg PO TID PRN muscle spasm #10 05/05/22 tabs ibuprofen 600 mg tablet 600 mg PO Q8H PRN pain #10 tabs 05/05/22 lidocaine 5 % topical patch 1 patch topical DAILY #15 ea 05/05/22 cefuroxime axetil 500 mg tablet 500 mg PO BID #14 tabs 10/24/22 Allergies Allergy/AdvReac Type Severity Reaction Status Date / Time No Known Allergies Allergy Verified 05/05/23 22:36 Review of Systems Review of Systems: Yes all other systems are reviewed and are negative [facility] Past Medical History Medical History HLD (hyperlipidemia) HTN (hypertension) Multinodular thyroid T2DM (type 2 diabetes mellitus) Vitamin D deficiency Surgical History History of cholecystectomy Hx of colonoscopy Hx of endoscopic retrograde cholangiopancreatography Hx of tubal ligation Family History Family History Father Emphysema of lung Mother No problems noted. Social History Social History Alcohol intake: never Patient Tobacco Use Status: Never used Tobacco Cigarette Packs Per Day: 1 Years Smoked: 20 Smoked in Last 30 Days: No Use of substances other than those prescribed or required for medical reasons: No Advance Directives: No Advance Directives Information Provided: No Physical Exam ED Vital Signs: Vital Signs - 24 hr 05/05/23 22:29 05/06/23 00:21 05/06/23 01:41 Temperature 98.2 F 98.0 F 97.9 F Pulse Rate 82 75 78 Respiratory Rate 18 17 12 Blood Pressure 160/70 H 141/51 H 127/71 Pulse Oximetry 99 100 99 Oxygen Delivery Method Room Air Room Air BMI result Body Mass Index 20.1 Appearance: Alert. Oriented X3. No acute distress. ENT: Pharynx normal. Oral Mucosa moist no stridor Neck: Normal inspection. Neck supple. CVS: Normal heart rate and rhythm. Pulses normal. Respiratory: No respiratory distress. Equal air entry bilateral, no wheezing/rales/rhonchi Abdomen: Soft and nontender. Bowel sounds are present, Skin: Skin warm and dry. Normal skin color. Normal skin turgor. Neuro: Oriented X 3. Medical Decision Making Medical Decision Making MDM Narrative: Patient with dysphagia x-ray negative for any foreign body patient able to have puddings in the ER able to drink fluids advised to have small bites of meal with water will discharge patient home Differential Diagnosis Differential Diagnoses: The differential diagnosis associated with the presentation includes Achlasia/foreign body impacted Radiology Impression Discussion of test interpretation with radiology: I have reviewed the radiologist's reading. Discharge Plan Discharge Clinical Impression: Feeling of foreign body in throat Patient Disposition: Home, Self-Care Instructions: Foreign Body in Pharynx (ED) Additional Instructions: Have small bites of food with lot of fluids Follow up with PCP if recurrence of the food impaction Prescriptions: No Action lidocaine 5 % adhesive patch,medicated 1 patch topical DAILY Qty: 15 0RF Rx Instructions: leave on most painful area for up to 12 hrs cyclobenzaprine 5 mg tablet 5 mg PO TID PRN (Reason: muscle spasm) Qty: 10 0RF ibuprofen 600 mg tablet 600 mg PO Q8H PRN (Reason: pain) Qty: 10 0RF cefuroxime axetil 500 mg tablet 500 mg PO BID Qty: 14 0RF ondansetron 4 mg tablet,disintegrating 4 mg PO ONCE PRN (Reason: nausea and vomiting) Qty: 10 0RF meclizine 25 mg tablet 25 mg PO Q6-8H PRN (Reason: dizziness) Qty: 20 0RF insulin aspart U-100 [Novolog FlexPen U-100 Insulin] 100 unit/mL (3 mL) insulin pen See Rx Instructions subcut DAILY@1700 Rx Instructions: 10-12 Units subcut daily at 1700; atenolol 50 mg tablet 50 mg PO DAILY gabapentin 400 mg capsule 400 mg PO BID Lantus Solostar U-100 Insulin 100 unit/mL (3 mL) insulin pen 68 unit subcut QPM (DME) pen needle, diabetic 32 gauge x 5/32 needle See Rx Instructions .ROUTE .MEDSUPPLY Qty: 50 Rx Instructions: As directed loratadine 10 mg tablet 10 mg PO DAILY losartan 100 mg tablet 100 mg PO DAILY aspirin 81 mg tablet,chewable 1 tab PO DAILY pantoprazole 40 mg tablet,delayed release (DR/EC) 40 mg PO DAILY amlodipine 5 mg tablet 5 mg PO DAILY (DME) FreeStyle Lite Strips Strip See Rx Instructions Not Applicable .MEDSUPPLY Qty: 10 Rx Instructions: As directed rosuvastatin 10 mg tablet 10 mg PO BEDTIME chlorthalidone 50 mg tablet 50 mg PO DAILY cimetidine 200 mg tablet 200 mg PO BID insulin aspart U-100 100 unit/mL (3 mL) insulin pen 50 unit subcut BID@0800,1200 Patient Comments: Up to 12 units for correction miconazole nitrate [Miconazole-7] 2 % cream 1 appful vaginal BEDTIME 7 Days Qty: 45 1RF miconazole nitrate [Miconazole-7] 2 % cream 1 appful vaginal BEDTIME 7 Days Qty: 45 2RF Jardiance 10 mg tablet 10 mg PO QAM cholecalciferol (vitamin D3) [Vitamin D3] 25 mcg (1,000 unit) capsule 25 mcg PO DAILY Interventions: ED Discharge Assessment Last Done: 05/06/23 01:43 Discharge Date/Time: 05/06/23 01:43
--- NOTE | 2023-05-06 01:37 | PC.NURSE ---
Food provided to patient. Pt able to swallow with no complications or difficulty.
[2023-05-06 01:41] VITALS: BP 127/71; PULSE 78; RESP 12; TEMP 36.6; O2SAT 99
== END 2023-05-06 01:43 | disposition home or self-care (01) ==
PROVIDERS: Emergency Provider Internal Medicine; PCP Internal Medicine
DX: R09.89 Other specified symptoms and signs involving the circulatory and respiratory systems (principal); E11.9 Type 2 diabetes mellitus without complications; I10 Essential (primary) hypertension; E78.5 Hyperlipidemia, unspecified; Z79.899 Other long term (current) drug therapy; Z79.4 Long term (current) use of insulin; Z79.82 Long term (current) use of aspirin; Z87.891 Personal history of nicotine dependence
CPT/HCPCS: 70360; 71045; 99283; 99284

== ENCOUNTER → 2023-07-08 11:11 | Outpatient (BNVA) | payer OTHER, SELFPAY | PROVIDERS: PCP Internal Medicine; Visit Provider Nurse Practitioner Family ==

== ENCOUNTER 2023-08-18 11:04 | Outpatient (REF) | payer OTHER, SELFPAY ==
--- NOTE | ~2023-08-18 | MR_ITS ---
EXAMINATION: MR ABDOMEN WITHOUT AND WITH CONTRAST CLINICAL INFORMATION: Liver lesion. Hepatomegaly. COMPARISON: Previous CT of the abdomen and pelvis most recent September 2021, MR of the abdomen June 2018 and ultrasound of the abdomen September 2021 TECHNIQUE: MR abdomen was performed without and with use of 5 mL intravenous Gadavist gadolinium contrast. Postcontrast images are performed in multiphase dynamic sequences. Imaging was performed in 3 planes. FINDINGS: Exam is slightly limited due to motion. LUNG BASES: The visualized lung bases are unremarkable. LIVER, GALLBLADDER, AND BILIARY TREE: The liver is normal in size, smooth in contour, and normal in signal. No focal hepatic lesion or biliary ductal dilatation is present. Signal artifact from cholecystectomy. PANCREAS: Unremarkable. SPLEEN: Normal. ADRENAL GLANDS: Stable 1.6 x 2 cm left adrenal nodule with small focus of fat suggestive of a myelolipoma. Normal right adrenal gland. KIDNEYS AND URETERS: The kidneys are normal in size, shape, and enhance symmetrically. No hydronephrosis. No perinephric stranding. GASTROINTESTINAL TRACT: No bowel obstruction. No ascites or fluid collection. ABDOMINAL WALL: No significant hernia is appreciated. LYMPH NODES: No lymphadenopathy. VASCULAR: Unremarkable. OSSEOUS STRUCTURES: Marrow signal normal. MR/MR abdomen wo/w con IMPRESSION: Limited exam due to motion. Normal-appearing liver. No focal liver lesion seen. Post cholecystectomy. 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
[2023-08-18] MEDS: gadobutroL 7.5 ML VIAL IVPUSH (11:58)
== END 2023-08-18 11:05 | disposition home or self-care (01) ==
LOC: HO.MRI 11:04
PROVIDERS: PCP Internal Medicine; Visit Provider Internal Medicine
DX: R16.0 Hepatomegaly, not elsewhere classified (principal)
CPT/HCPCS: 74183; A9585

== ENCOUNTER 2023-09-07 11:03 | Outpatient (AMB) | payer OTHER, SELFPAY ==
--- NOTE | 2023-09-07 11:07 | A.OFFVIS_ITS ---
Intake Vital Signs 09/07/23 11:09 Height 5 ft 2 in Weight 114 lb 10.246 oz BMI 21.0 BP 131/63 Blood Pressure Location Lt brachial Position Sitting Pulse 58 Intake Visit Reasons: 2 month fu discuss colo Intake Note: Heaven presents in the office as a 2 month follow up to discuss colonoscopy. CC: She is not having any concerns today! Incinerator Attendant Required: Yes Incinerator Attendant Name: Friend Allergies No Known Allergies Allergy (Verified 09/07/23 11:09) Medication List - Last Reconciled 09/07/23 by Dolores Howard ENGINEERING DOCUMENT CONTROL CLERK- amlodipine 10 mg PO DAILY aspirin 1 tab PO DAILY atenolol 50 mg PO DAILY blood sugar diagnostic As directed chlorthalidone 50 mg PO DAILY cholecalciferol (vitamin D3) (Vitamin D3) 25 mcg PO DAILY cimetidine 200 mg PO BID cyclobenzaprine 5 mg PO TID PRN empagliflozin (Jardiance) 25 mg PO DAILY gabapentin 400 mg PO BID ibuprofen 600 mg PO Q8H PRN insulin aspart U-100 (Novolog FlexPen U-100 Insulin aspart) 10-12 Units subcut daily at 1700; insulin glargine 30 units subcut QPM lidocaine 5% 1 patch topical DAILY loratadine 10 mg PO DAILY losartan 100 mg PO DAILY miconazole nitrate 2% (Miconazole-7) 1 appful vaginal BEDTIME 7 days miconazole nitrate 2% (Miconazole-7) 1 appful vaginal BEDTIME 7 days pantoprazole 40 mg PO DAILY pen needle, diabetic As directed rosuvastatin 10 mg PO BEDTIME HPI 2 month fu discuss colo HPI Details TODAY'S VISIT: Screen for colon cancer Patient denies any GI, cardiac or respiratory symptoms at this time. As mentioned above in HPI patient had ERCP done twice for blocked CBD. 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 Denies any issues with anesthesia in the past.? Denies any history of sleep apnea.? Patient is on low-dose aspirin. NSTEMI in March, followed by director supply chain at [facility]. I will see patient in 2 months. We want to make sure that patient is clear and will have no other interventions done. She is seeing vascular surgeon tomorrow. No family or personal history of colon cancer or polyps.? Patient denies melena, hematochezia, unintentional weight loss or ribbon like stools.? Patient is agreeable to plan of care and verbalizes understanding of instructions. She was given the opportunity to ask questions and all questions answered. ? TODAY'S VISIT: No changes since last visit. Patient has not seen vascular surgeon yet. Patient denies any cardiac, respiratory or GI symptoms. Patient is moving bowels without any issues. Her symptoms of reflux are suppressed with PPI and H2 rosalind. Patient denies dyspepsia, dysphagia or odynophagia. Denies any melena, hematochezia, unintentional weight loss or ribbon like stools. [facility] Medical History Vitamin D deficiency Multinodular thyroid HLD (hyperlipidemia) HTN (hypertension) T2DM (type 2 diabetes mellitus) Surgical History History of cholecystectomy Hx of endoscopic retrograde cholangiopancreatography Hx of tubal ligation Hx of colonoscopy Family History Father Emphysema of lung Mother No problems noted. Social History Alcohol intake: never Patient Tobacco Use Status: Never used Tobacco Cigarette Packs Per Day: 1 Years Smoked: 20 Female Reproductive History Menstrual Age of Menarche: 14 Review of Systems Const Denies weight gain and Denies weight loss ENT Reports no additional complaints, Denies dysphagia and Denies odynophagia Card Reports no additional complaints Resp Reports no additional complaints GI Denies abdominal pain, Denies belching, Denies melena, Denies bloating, Denies change in bowel habits, Denies dysphagia, Denies excessive flatus, Denies dyspepsia, Denies heartburn, Denies diarrhea, Denies loose stools, Denies nausea, Denies odynophagia and Denies vomiting Musc Reports no additional complaints Neuro Reports no additional complaints Psych Reports no additional complaints Endo Reports no additional complaints Physical Exam Vital Signs: Last Vital Signs Pulse 58 09/07/23 11:09 BP 131/63 09/07/23 11:09 BMI result Body Mass Index 21.0 Const General: healthy appearing, no acute distress and well developed Nutritional Appearance: well nourished Orientation/consciousness: patient oriented x3 HEENT Head: Yes normal to inspection, Yes normocephalic and Yes atraumatic Face and sinus: Yes normal facial exam Mouth: Normal oral and palatal mucosa present Throat: Yes posterior oropharynx normal, Yes tonsils normal and Yes uvula midline Eyes General: appearance normal, both eyes and all related structures Neck Neck: Yes normal visual inspection, Yes full ROM and Yes trachea midline Thyroid: Thyroid normal Resp Effort & Inspection: normal respiratory effort, able to speak in complete sentences, no tracheal deviation and symmetric chest movement Auscultation: clear to auscultation bilaterally Cardio Rate: regular rate GI Inspection: Yes normal to inspection and No distended Palpation (GI): Soft to palpation, not firm, nontender and No hepatosplenomegaly present Auscultation: normal bowel sounds General: Yes no CVA tenderness Back/Spine/Pelvis Back: no CVA tenderness Skin General skin exam: elasticity normal, turgor normal and dry skin Neuro General: patient oriented x3 Psych Appearance: grossly normal Mental Status: mental status grossly normal Assessment & Plan Assessment & Plan (1) Screen for colon cancer: Code(s): Z12.11 - Encounter for screening for malignant neoplasm of colon (2) GERD (gastroesophageal reflux disease): Code(s): K21.9 - Gastro-esophageal reflux disease without esophagitis Qualifiers: Esophagitis presence: esophagitis presence not specified Qualified Code(s): K21.9 - Gastro-esophageal reflux disease without esophagitis Plan Continue current dose of PPI and H2 rosalind. Call patient's director supply chain for clearance. Patient is on low-dose aspirin. Patient denies any cardiac or respiratory symptoms at this time. Patient is taking 30 units of Lantus very night, she will take 15 units two nights before and 1 night before the procedure. Patient will hold her NovoLog day before the procedure. What to expect before during and after the procedure discussed with patient. The importance of good bowel prep discussed with patient. I will see patient after the procedure, sooner on as needed basis. Patient is agreeable to this plan and verbalizes understanding of instructions. She was given the opportunity to ask questions and all questions answered. Thank you for allowing me to participate in her care Coding Level of Care Code Est Pt Level 3 (07148) Diagnoses Screen for colon cancer Z12.11 Gastroesophageal reflux disease, unspecified whether esophagitis present K21.9 Esophagitis presence: esophagitis presence not specified Time Spent (min) 30 Comment 20 minutes spent with patient and additional 10 minutes spent reviewing her records
[2023-09-07 11:09] VITALS: BP 131/63; PULSE 58; BMI 21.0
== END 2023-09-07 11:41 | disposition home or self-care (01) ==
PROVIDERS: PCP Internal Medicine; Visit Provider Nurse Practitioner Family
DX: K21.9 Gastro-esophageal reflux disease without esophagitis (principal); Z12.11 Encounter for screening for malignant neoplasm of colon
CPT/HCPCS: 99213

== ENCOUNTER → 2023-09-07 11:03 | Outpatient (BNVA) | payer OTHER, SELFPAY | PROVIDERS: PCP Internal Medicine; Visit Provider Nurse Practitioner Family | DX: Z01.818 Encounter for other preprocedural examination (principal); K21.9 Gastro-esophageal reflux disease without esophagitis | CPT/HCPCS: 99212 ==

== ENCOUNTER 2023-11-08 14:24 | Outpatient (AMB) | payer OTHER, SELFPAY ==
[2023-11-08 14:29] VITALS: BP 130/60; PULSE 68; TEMP 36.3; O2SAT 96; BMI 21.8
--- NOTE | 2023-11-08 14:29 | MHC.OFFWIV ---
Intake Vital Signs 11/08/23 14:29 Height 5 ft 2 in Weight 119 lb BMI 21.8 BP 130/60 Blood Pressure Location Lt brachial Position Sitting Pulse 68 Pulse Source Pulse Oximeter Temp 97.4 F Temp Source Temporal Artery Scan Pulse Oximetry (%) 96 Oxygen Delivery Method Room Air Intake Visit Reasons: EP allergic reaction eyes (masked in lobby) Intake Note: pt is here today for allergic reaction eyes started 2 days ago Patient Tobacco Use Status: Never used Tobacco Allergies No Known Allergies Allergy (Verified 11/08/23 15:06) Medication List - Last Reconciled 11/08/23 by Alfred Corral MD amlodipine 10 mg PO DAILY aspirin 1 tab PO DAILY atenolol 50 mg PO DAILY blood sugar diagnostic As directed chlorthalidone 50 mg PO DAILY cholecalciferol (vitamin D3) (Vitamin D3) 25 mcg PO DAILY cimetidine 200 mg PO BID cyclobenzaprine 5 mg PO TID PRN dulaglutide (Trulicity) mg subcut empagliflozin (Jardiance) 25 mg PO DAILY gabapentin 400 mg PO BID ibuprofen 600 mg PO Q8H PRN insulin aspart U-100 (Novolog FlexPen U-100 Insulin aspart) 10-12 Units subcut daily at 1700; insulin glargine 30 units subcut QPM lidocaine 5% 1 patch topical DAILY loratadine 10 mg PO DAILY losartan 100 mg PO DAILY miconazole nitrate 2% (Miconazole-7) 1 appful vaginal BEDTIME 7 days miconazole nitrate 2% (Miconazole-7) 1 appful vaginal BEDTIME 7 days pantoprazole 40 mg PO DAILY pen needle, diabetic As directed rosuvastatin 10 mg PO BEDTIME Do you need a note to return to daycare/school/sports/work: No HPI EP allergic reaction eyes (masked in lobby) HPI Details 73 yr old female presents to the office for a sick visit. Patient has a rash on her face, predominantly over the right nostril and surrounding area. Very itchy. No fevers or chills. PFSH Medical History Vitamin D deficiency Multinodular thyroid HLD (hyperlipidemia) HTN (hypertension) T2DM (type 2 diabetes mellitus) Surgical History History of cholecystectomy Hx of endoscopic retrograde cholangiopancreatography Hx of tubal ligation Hx of colonoscopy Family History Father Emphysema of lung Mother No problems noted. Social History Alcohol intake: never Patient Tobacco Use Status: Never used Tobacco Cigarette Packs Per Day: 1 Years Smoked: 20 Female Reproductive History Menstrual Age of Menarche: 14 Physical Exam Vital Signs: Last Vital Signs Temp 97.4 F 11/08/23 14:29 Pulse 68 11/08/23 14:29 BP 130/60 11/08/23 14:29 Pulse Ox 96 11/08/23 14:29 Oxygen Delivery Method Room Air 11/08/23 14:29 BMI result Body Mass Index 21.8 Skin Other: Face: weepy erythematous rash over the right nostril, not tender to touch. Assessment & Plan Assessment & Plan (1) Rash: Code(s): R21 - Rash and other nonspecific skin eruption Plan: Prednisone and hc cream called in. If sx not better to follow up here. Coding Level of Care Code Est Pt Level 3 (81721) Diagnoses Rash R21
== END 2023-11-08 16:01 | disposition home or self-care (01) ==
PROVIDERS: PCP Internal Medicine; Visit Provider Internal Medicine
DX: R21 Rash and other nonspecific skin eruption (principal)
CPT/HCPCS: 99213

== ENCOUNTER 2023-12-25 04:30 | Emergency (ER) | payer OTHER, SELFPAY ==
--- NOTE | ~2023-12-25 | XR_ITS ---
EXAMINATION: XR HIP, RIGHT , AP pelvis CLINICAL INFORMATION: Fall pain COMPARISON: None available at the time of this dictation. TECHNIQUE: Frontal and lateral views of the hip acquired. , AP pelvis FINDINGS: There is no evidence of acute fracture or dislocation. There are mild degenerative arthritic changes of the hip evident by sclerotic changes of the acetabular roof and narrowing of the joint space. Mild degenerative changes of the symphysis pubis. Mild degenerative changes of the SI joints. Adjacent pubic rami are intact. Surrounding soft tissues are unremarkable. There are vascular calcifications and vascular stents. XR/XR hip RT w PEL1V IMPRESSION: Mild degenerative arthritis. No fracture.
--- NOTE | ~2023-12-25 | CT_ITS ---
CT head/brain wo IV con CLINICAL INFORMATION: Reason for Exam fall and head injury COMPARISON: Prior CT 2020 TECHNIQUE: Department standard protocol. This CT examination was performed using dose optimization techniques as appropriate, variously including the following: *Automated exposure control *Adjustment of mA and/or kV according to patient size (this includes techniques or standardized protocols for targeted exams where dose is matched to indication/reason for exam; i.e. extremities or head) *Use of iterative reconstruction technique DLP: 566 mGy-cm FINDINGS: CEREBRAL HEMISPHERES: There is no evidence of intra-axial or extra-axial mass, hemorrhage or acute infarct. BRAIN PARENCHYMA: Deep white matter and paraventricular hypoattenuation, nonspecific; most likely changes secondary to chronic ischemia due to microvascular angiopathy. SUBDURAL SPACE: No bleed. BASAL GANGLIA AND PINEAL GLAND: Unremarkable VENTRICLES: Symmetric and normal in size. CEREBELLUM AND BRAINSTEM: No space-occupying mass, hemorrhage or acute infarct. CEREBELLOPONTINE ANGLES: No lesion found. ORBITS: No intraorbital mass. VESSELS: Unremarkable SKULL BASE: Unremarkable INCLUDED SINUSES AT SKULL BASE: Clear SKULL AND SKIN: No fracture or bone lesion found. CT/CT head/brain wo IV con IMPRESSION: 1. Deep white matter and periventricular hypoattenuation, nonspecific; most likely sequela of chronic microvascular angiopathy ischemia. 2. No intracranial bleed.
--- NOTE | ~2023-12-25 | CT_ITS ---
EXAMINATION: CT CERVICAL SPINE without contrast CLINICAL INFORMATION: Reason for Exam fall and neck pain COMPARISON: No prior CT available, TECHNIQUE: Computed axial sagittal and coronal images acquired using department's standard protocol. This CT examination was performed using dose optimization techniques as appropriate, variously including the following: *Automated exposure control *Adjustment of mA and/or kV according to patient size (this includes techniques or standardized protocols for targeted exams where dose is matched to indication/reason for exam; i.e. extremities or head) *Use of iterative reconstruction technique CONTRAST: None DLP: 811 mGy-cm FINDINGS: SKULL BASE: Visualized structures at skull base are normal, Included facial sinuses are clear, CERVICAL VERTEBRAE: Seven cervical vertebrae identified maintaining proper height and alignment, ATLANTOAXIAL AND ATLANTOOCCIPITAL ARTICULATION: Included occipital condyle are properly articulating with C1, measuring of C1 is intact. Proper articulation of the odontoid process with C1. POSTERIOR SPINES and lateral transverse processes: All are intact. DISCS: Narrowing of intervertebral disc spaces and developed small osteophyte from the edges of endplates encroaching on the neural foramen bilaterally at multiple levels. PREVERTEBRAL SOFT TISSUE: Within normal limits, no evidence of prevertebral soft tissue swelling. Visualized portion of the trachea larynx are normal. LUNG APICES: Included lung apices are clear bilaterally. Paravertebral soft tissue including lymph node and salivary glands thyroid: There is a right thyroid or parathyroid nodule 1.8 cm with peripheral calcified rim, this was not described on prior thyroid ultrasound from 2019, given its size would recommend correlation with follow-up thyroid ultrasound. CT/CT cervical spine wo IV con IMPRESSION: 1. No CT evidence of cervical spine fracture. 2. Narrowing of intervertebral disc spaces and developed small osteophyte from the edges of endplates encroaching on the neural foramen bilaterally at multiple levels. 3. There is a right thyroid or parathyroid nodule 1.8 cm with peripheral calcified rim, this was not described on prior thyroid ultrasound from 2019, given its size would recommend correlation with follow-up outpatient thyroid ultrasound.
[2023-12-25 04:42] VITALS: BP 193/54; BP 202/96; PULSE 67; PULSE 68; RESP 18; TEMP 36.8; O2SAT 100; O2SAT 98; BMI 24.6
[2023-12-25 05:12] LABS: MANUAL DIFF FLAG NO
[2023-12-25 05:13] LABS: Basophils Percent Auto 0.6 % (0-2); Eosinophils Absolute Auto 0.2 X10*3/uL (0.0-0.4); Eosinophils Percent Auto 3.5 % (0-4); Hematocrit 33.5 % (37.0-47.0); Hemoglobin 11.2 g/dl (12.0-16.0); Imm Gran Abs Auto 0.02 X10*3/uL (0.00-0.03); Imm Gran Pct Auto 0.3 % (0.0-0.4); Lymphocytes Absolute Auto 1.9 X10*3/uL (1.2-4.9); Lymphocytes Percent Auto 28.4 % (20-40); Mean Corpuscular HGB Conc 33.4 g/dl (31.0-35.0); Mean Corpuscular Hemoglobin 26.9 pg (27.0-33.0); Mean Corpuscular Volume 80.5 fL (80.0-98.0); Mean Platelet Volume 11.3 fL (9.4-12.3); Monocytes Absolute Auto 0.6 X10*3/uL (0.1-1.2); Neutrophils Absolute Auto 3.8 x10*3/uL (2.0-8.3); Neutrophils Percent Auto 58.2 % (45-73); Platelet Count 200 X10*3/uL (160-400); Red Blood Count 4.16 X10*6/uL (4.20-5.50); Red Cell Distribution Width 12.2 % (11.0-16.0); White Blood Count 6.5 X10*3/uL (4.8-10.8)
[2023-12-25 05:32] LABS: Alanine Aminotransferase 19 U/L (0-31); Albumin Level 3.9 g/dL (3.5-5.0); Alkaline Phosphatase 82 U/L (39-117); Anion Gap 11 (12-20); Aspartate Amino Transferase 20 U/L (5-31); Bilirubin Total 0.5 mg/dL (0.0-1.0); Blood Urea Nitrogen 24 mg/dL (9-16); Calcium 9.3 mg/dL (8.4-10.2); Carbon Dioxide 26 mmol/L (22-29); Chloride 100 mmol/L (96-108); Estimated Glomerular Filt Rate 34; Glucose Random 454 mg/dL (60-115); Potassium 3.9 mmol/L (3.3-5.1); Sodium 133 mmol/L (135-145); Total Protein 6.8 g/dL (6.5-8.0)
[2023-12-25 06:16] VITALS: BP 185/59; PULSE 65; RESP 18; O2SAT 99
[2023-12-25 06:21] LABS: Appearance Urine Clear; Color Urine Yellow; Glucose Urine UA >=1000 mg/dL (Negative); Leukocyte Esterase Urine Negative (Negative); Nitrite Urine Negative (Negative); PH 7.5 (5.0-9.0); UMIC TRIGGER UACC YES; Urine Blood Negative (Negative); Urine Ketones Negative (Negative); Urine Protein Negative (Neg-Trace)
[2023-12-25 06:26] LABS: Bacteria Urine None Seen (None Seen); Hyaline Casts Urine 0-2 /LPF (0-2); RBC Urine 0-2 /HPF (0-2); Squamous Epithelial Cell Urine 0-2 /HPF (0-2); WBC Urine 0-5 /HPF (0-5)
[2023-12-25] MEDS: Acetaminophen 325 MG TABLET 650 MG PO (07:00)
[2023-12-25 07:16] LABS: Glucose, Whole Blood 345 mg/dL (60-115)
--- NOTE | 2023-12-25 07:34 | ED_ITS ---
HPI - Fall General Chief Complaint: Fall Stated Complaint: WEAK,FALL,HIGH BP 202/96, HIGH BS 527 PER EMS Time Seen by Provider: 12/25/23 07:09 Source: patient, EMS and solar sales advisor Mode of arrival: EMS Limitations: no limitations History of Present Illness HPI Narrative: 73-year-old female came in by ambulance for evaluation after having a mechanical fall. Patient was going downstairs missed the last step of stairs causing her to fall down mostly on the right right side of her body and hit right side of her head, patient is complaining of right side head pain and neck pain, no weakness, no numbness, patient also is complaining of right hip pain, however patient is able to bear weight. Patient denies any feeling of dizziness, loss of consciousness, lightheadedness, and chest pain. Patient not taking anticoagulation therapy. Patient also is diabetic controlled with Lantus 40 units every night and NovoLog for sliding scale. Found to have high blood sugar in the ED. Related Data Home Medications ?Medication ?Instructions ?Recorded ?Confirmed aspirin 81 mg chewable tablet 1 tab PO DAILY 07/24/20 09/07/23 atenolol 50 mg tablet 50 mg PO DAILY 07/24/20 09/07/23 blood sugar diagnostic #10 ea 07/24/20 09/07/23 chlorthalidone 50 mg tablet 50 mg PO DAILY 07/24/20 09/07/23 cimetidine 200 mg tablet 200 mg PO BID 07/24/20 09/07/23 gabapentin 400 mg capsule 400 mg PO BID 07/24/20 09/07/23 loratadine 10 mg tablet 10 mg PO DAILY 07/24/20 09/07/23 losartan 100 mg tablet 100 mg PO DAILY 07/24/20 09/07/23 pantoprazole 40 mg tablet,delayed 40 mg PO DAILY 07/24/20 09/07/23 release pen needle, diabetic 32 gauge x #50 ea 07/24/20 09/07/23 rosuvastatin 10 mg tablet 10 mg PO BEDTIME 07/24/20 09/07/23 cholecalciferol (vitamin D3) 25 25 mcg PO DAILY 12/31/21 09/07/23 mcg (1,000 unit) capsule (Vitamin D3) insulin aspart U-100 100 unit/mL See Rx Instructions subcut 12/31/21 09/07/23 (3 mL) subcutaneous pen (Novolog DAILY@1700 FlexPen U-100 Insulin aspart) amlodipine 10 mg tablet 10 mg PO DAILY 09/07/23 09/07/23 empagliflozin 25 mg tablet 25 mg PO DAILY 09/07/23 09/07/23 (Jardiance) insulin glargine 100 unit/mL (3 30 unit subcut QPM 09/07/23 09/07/23 mL) subcutaneous pen dulaglutide 3 mg/0.5 mL mg subcut 11/08/23 subcutaneous pen injector (Trulicity) Previous Rx's ?Medication ?Instructions ?Recorded miconazole nitrate 2 % vaginal 1 appful vaginal BEDTIME 7 days 02/06/22 cream (Miconazole-7) #45 grams miconazole nitrate 2 % vaginal 1 appful vaginal BEDTIME 7 days 02/06/22 cream (Miconazole-7) #45 grams cyclobenzaprine 5 mg tablet 5 mg PO TID PRN muscle spasm #10 05/05/22 tabs ibuprofen 600 mg tablet 600 mg PO Q8H PRN pain #10 tabs 05/05/22 lidocaine 5 % topical patch 1 patch topical DAILY #15 ea 05/05/22 hydrocortisone 2.5 % topical cream 1 appl topical BID PRN skin 11/08/23 irritation #20 grams prednisone 20 mg tablet 60 mg (3 x 20 mg) PO DAILY #9 tabs 11/08/23 Allergies Allergy/AdvReac Type Severity Reaction Status Date / Time No Known Allergies Allergy Verified 12/25/23 04:46 Review of Systems 2 Review of Systems: All other systems are reviewed and are negative Constitutional: Reports as per HPI and Reports no additional constitutional complaints Eyes: Reports as per HPI and Reports no additional eye complaints Reports system reviewed and no additional complaints, except as documented Cardiovascular: Reports as per HPI and Reports no additional cardiovascular complaints Respiratory: Reports as per HPI and Reports no additional respiratory complaints Gastrointestinal: Reports as per HPI and Reports no additional gastrointestinal complaints Genitourinary: Reports no additional female genitourinary complaints Musculoskeletal: Reports no additional musculoskeletal complaints Skin/Breast: Reports system reviewed and no additional complaints, except as docu Psychiatric: Reports no additional psychiatric complaints Endocrine: Reports no additional endocrine complaints Hematologic/Lymphatic: Reports no additional hematologic/lymphatic complaints Allergic/Immunologic: Reports no additional allergic/immunologic complaints Reports system reviewed and no additional complaints, except as documented and Reports Abnormal speech present PMFSH Past Medical History Medical History Vitamin D deficiency Multinodular thyroid HLD (hyperlipidemia) HTN (hypertension) T2DM (type 2 diabetes mellitus) Surgical History History of cholecystectomy Hx of endoscopic retrograde cholangiopancreatography Hx of tubal ligation Hx of colonoscopy Family History Family History Father Emphysema of lung Mother No problems noted. Social History Social History Alcohol intake: never Patient Tobacco Use Status: Never used Tobacco Cigarette Packs Per Day: 1 Years Smoked: 20 Smoked in Last 30 Days: No Use of substances other than those prescribed or required for medical reasons: No Advance Directives: No Advance Directives Information Provided: Yes Physical Exam 2 Vital Signs: Vital Signs: Last Vital Signs Temp 97.8 F 12/25/23 12:54 Pulse 60 12/25/23 12:54 Resp 18 12/25/23 12:54 BP 178/61 H 12/25/23 12:54 Pulse Ox 99 12/25/23 12:54 O2 Del Method Room Air 12/25/23 12:54 BMI result Body Mass Index 24.6 Vital signs have been reviewed and appear to be correct. Blood pressure elevated. Heart rate normal. Respiratory rate normal. Temperature normal. Oxygen saturation normal. Appearance: Alert. Oriented X3. No acute distress. Head: Normal external exam. Normocephalic. Atraumatic. No Barragan signs noted. No raccoon eyes noted Eyes: PERRLA. EOMI. Conjunctiva and sclera normal. Eyelids normal. ENT: TM's Normal. Pharynx normal. Uvula midline. Moist mucous membranes. No trismus noted. No drooling noted. No muffled voice noted. Neck: Normal inspection. Neck supple. FROM. No adenopathy. Thyroid Normal. No meningeal signs. No neck mass noted. CVS: Normal heart rate and rhythm. Heart sound normal. No murmurs noted. Pulses normal throughout. Respiratory: No respiratory distress. Painless inspiration. Breath sounds normal. No wheezes/rales/rhonchi noted. Chest nontender. No accessory muscle usage noted or decreased air movement noted. Abdomen: Soft and nontender. Bowel sounds normal in all 4 quadrants. No distention noted. No organomegaly noted. No visible injury noted. Back: No CVA tenderness. Full range of motion noted. Skin: Skin warm and dry. Normal skin color. Normal skin turgor. No rashes/lesions/lacerations noted. Extremities: No lower extremity edema. Extremities exhibit normal range of motion. Extremities nontender. Neuro: Oriented X 3. Cranial nerve exam: II-XII are grossly intact No motor deficit. No sensory deficit. Reflexes normal. Course Reevaluation(s) Reevaluation #1: S/p mechanical fall. Closed head injury with negative head CT and normal neuro exam. Hyperglycemia no DKA improving with IV hydration, patient was instructed to resume her insulin regimen at home. Time: 09:03 Reevaluation #2: Able to ambulate in the ED, improvement of BS. Time: 13:08 Medications Administered Discontinued Medications Generic Name Dose Route Start Last Admin Trade Name Freq PRN Reason Stop Dose Admin Acetaminophen 650 mg 12/25/23 06:16 12/25/23 07:00 Acetaminophen 325 Mg Tablet PO 12/25/23 06:17 650 mg ONCE ONE Administration Sodium Chloride 1,000 mls @ 999 mls/hr 12/25/23 07:15 12/25/23 09:43 Ns IV 12/25/23 08:15 Infused .Q1H1M ONE Infusion Medical Decision Making Differential Diagnosis Differential Diagnoses: The differential diagnosis associated with the presentation includes (Intracranial bleed, cervical spine injury, right hip fracture, DKA, UTI, hyperglycemia, electrolyte derangement, severe anemia.) Admission/Observation Consideration of admission/observation: Escalation of care including admission/observation considered Lab Data MDM Lab Attestation statement: I reviewed the patient's lab results. 12/25/23 05:05 12/25/23 05:05 Labs: Lab Results 12/25/23 12/25/23 12/25/23 Range/Units 05:05 06:15 07:13 WBC 6.5 (4.8-10.8) X10*3/uL RBC 4.16 L (4.20-5.50) X10*6/uL Hgb 11.2 L (12.0-16.0) g/dl Hct 33.5 L (37.0-47.0) % MCV 80.5 (80.0-98.0) fL MCH 26.9 L (27.0-33.0) pg MCHC 33.4 (31.0-35.0) g/dl RDW 12.2 (11.0-16.0) % Plt Count 200 D (160-400) X10*3/uL MPV 11.3 (9.4-12.3) fL Immature Gran % (Auto) 0.3 (0.0-0.4) % Neut % (Auto) 58.2 (45-73) % Lymph % (Auto) 28.4 (20-40) % [place] % (Auto) 9.0 (2-11) % Eos % (Auto) 3.5 (0-4) % Baso % (Auto) 0.6 (0-2) % Lymph # (Auto) 1.9 (1.2-4.9) X10*3/uL [place] # (Auto) 0.6 (0.1-1.2) X10*3/uL Eos # (Auto) 0.2 (0.0-0.4) X10*3/uL Baso # (Auto) 0.0 (0.0-0.2) X10*3/uL Abs Immat Gran (auto) 0.02 (0.00-0.03) X10*3/uL Absolute Neuts (auto) 3.8 (2.0-8.3) x10*3/uL Absolute Nucleated RBC 0.000 (0.0-0.012) X10*3/uL Nucleated RBC % (auto) 0.0 (0.0-0.2) /100WBC Sodium 133 L (135-145) mmol/L Potassium 3.9 (3.3-5.1) mmol/L Chloride 100 (96-108) mmol/L Carbon Dioxide 26 (22-29) mmol/L Anion Gap 11 L (12-20) BUN 24 H (9-16) mg/dL Creatinine 1.49 H (0.5-1.4) mg/dL Estim Creat Clear Calc 27.0 Estimated GFR 34 POC Glucose 345 H (60-115) mg/dL Random Glucose 454 H* (60-115) mg/dL Calcium 9.3 (8.4-10.2) mg/dL Total Bilirubin 0.5 (0.0-1.0) mg/dL AST 20 (5-31) U/L ALT 19 (0-31) U/L Alkaline Phosphatase 82 (39-117) U/L Total Protein 6.8 (6.5-8.0) g/dL Albumin 3.9 (3.5-5.0) g/dL Urine Color Yellow Urine Appearance Clear Urine pH 7.5 (5.0-9.0) Ur Specific [place] 1.010 (1.005-1.025) Urine Protein Negative (Neg-Trace) mg/dL Urine Glucose (UA) >=1000 H (Negative) mg/dL Urine Ketones Negative (Negative) mg/dL Urine Blood Negative (Negative) Urine Nitrite Negative (Negative) Ur Leukocyte Esterase Negative (Negative) Urine RBC 0-2 (0-2) /HPF Urine WBC 0-5 (0-5) /HPF Ur Squamous Epith Cells 0-2 (0-2) /HPF Urine Bacteria None Seen (None Seen) Hyaline Casts 0-2 (0-2) /LPF 12/25/23 Range/Units 09:51 WBC (4.8-10.8) X10*3/uL RBC (4.20-5.50) X10*6/uL Hgb (12.0-16.0) g/dl Hct (37.0-47.0) % MCV (80.0-98.0) fL MCH (27.0-33.0) pg MCHC (31.0-35.0) g/dl RDW (11.0-16.0) % Plt Count (160-400) X10*3/uL MPV (9.4-12.3) fL Immature Gran % (Auto) (0.0-0.4) % Neut % (Auto) (45-73) % Lymph % (Auto) (20-40) % [place] % (Auto) (2-11) % Eos % (Auto) (0-4) % Baso % (Auto) (0-2) % Lymph # (Auto) (1.2-4.9) X10*3/uL [place] # (Auto) (0.1-1.2) X10*3/uL Eos # (Auto) (0.0-0.4) X10*3/uL Baso # (Auto) (0.0-0.2) X10*3/uL Abs Immat Gran (auto) (0.00-0.03) X10*3/uL Absolute Neuts (auto) (2.0-8.3) x10*3/uL Absolute Nucleated RBC (0.0-0.012) X10*3/uL Nucleated RBC % (auto) (0.0-0.2) /100WBC Sodium (135-145) mmol/L Potassium (3.3-5.1) mmol/L Chloride (96-108) mmol/L Carbon Dioxide (22-29) mmol/L Anion Gap (12-20) BUN (9-16) mg/dL Creatinine (0.5-1.4) mg/dL Estim Creat Clear Calc Estimated GFR POC Glucose 266 H (60-115) mg/dL Random Glucose (60-115) mg/dL Calcium (8.4-10.2) mg/dL Total Bilirubin (0.0-1.0) mg/dL AST (5-31) U/L ALT (0-31) U/L Alkaline Phosphatase (39-117) U/L Total Protein (6.5-8.0) g/dL Albumin (3.5-5.0) g/dL Urine Color Urine Appearance Urine pH (5.0-9.0) Ur Specific [place] (1.005-1.025) Urine Protein (Neg-Trace) mg/dL Urine Glucose (UA) (Negative) mg/dL Urine Ketones (Negative) mg/dL Urine Blood (Negative) Urine Nitrite (Negative) Ur Leukocyte Esterase (Negative) Urine RBC (0-2) /HPF Urine WBC (0-5) /HPF Ur Squamous Epith Cells (0-2) /HPF Urine Bacteria (None Seen) Hyaline Casts (0-2) /LPF Independent Interpretation I performed an independent interpretation of an: Plain X-Ray (Right hip x- ray:There is no evidence of acute fracture or dislocation. There are mild degenerative arthritic changes of the hip evident by sclerotic changes of the acetabular roof and narrowing of the joint space. Mild degenerative changes of the symphysis pubis. Mild degenerative changes of the SI ) and CT Scan (Head/C- spine:1. Deep white matter and periventricular hypoattenuation, nonspecific; most likely sequela of chronic microvascular angiopathy ischemia. 2. No intracranial bleed. . No CT evidence of cervical spine fracture. 2. Narrowing of intervertebral disc spaces and developed small osteoph ) Radiology Impression Discussion of test interpretation with radiology: I have reviewed the radiologist's reading. Chronic Conditions Patient?s care impacted by: Diabetes Discharge Plan Discharge Clinical Impression: Hyperglycemia due to diabetes mellitus, Closed head injury, Contusion of hip, right Patient Disposition: Home, Self-Care Instructions: Head Injury (ED), Diabetic Hyperglycemia (ED), Hip Contusion (ED) Prescriptions: No Action lidocaine 5 % adhesive patch,medicated 1 patch topical DAILY Qty: 15 0RF Rx Instructions: leave on most painful area for up to 12 hrs cyclobenzaprine 5 mg tablet 5 mg PO TID PRN (Reason: muscle spasm) Qty: 10 0RF ibuprofen 600 mg tablet 600 mg PO Q8H PRN (Reason: pain) Qty: 10 0RF insulin aspart U-100 [Novolog FlexPen U-100 Insulin] 100 unit/mL (3 mL) insulin pen See Rx Instructions subcut DAILY@1700 Rx Instructions: 10-12 Units subcut daily at 1700; Trulicity 3 mg/0.5 mL pen injector subcut prednisone 20 mg tablet 60 mg PO DAILY Qty: 9 0RF hydrocortisone 2.5 % cream 1 appl topical BID PRN (Reason: skin irritation) Qty: 20 0RF atenolol 50 mg tablet 50 mg PO DAILY gabapentin 400 mg capsule 400 mg PO BID (DME) pen needle, diabetic 32 gauge x 5/32 needle See Rx Instructions .ROUTE .MEDSUPPLY Qty: 50 Rx Instructions: As directed loratadine 10 mg tablet 10 mg PO DAILY losartan 100 mg tablet 100 mg PO DAILY aspirin 81 mg tablet,chewable 1 tab PO DAILY pantoprazole 40 mg tablet,delayed release (DR/EC) 40 mg PO DAILY (DME) FreeStyle Lite Strips Strip See Rx Instructions Not Applicable .MEDSUPPLY Qty: 10 Rx Instructions: As directed rosuvastatin 10 mg tablet 10 mg PO BEDTIME chlorthalidone 50 mg tablet 50 mg PO DAILY cimetidine 200 mg tablet 200 mg PO BID insulin glargine 100 unit/mL (3 mL) insulin pen 30 unit subcut QPM miconazole nitrate [Miconazole-7] 2 % cream 1 appful vaginal BEDTIME 7 Days Qty: 45 1RF miconazole nitrate [Miconazole-7] 2 % cream 1 appful vaginal BEDTIME 7 Days Qty: 45 2RF cholecalciferol (vitamin D3) [Vitamin D3] 25 mcg (1,000 unit) capsule 25 mcg PO DAILY Jardiance 25 mg tablet 25 mg PO DAILY amlodipine 10 mg tablet 10 mg PO DAILY Referrals: Oriana Botello MD [Primary Care Provider] - Print Language: Vietnamese
[2023-12-25] MEDS: 0.9 % Sodium Chloride 1,000 ML 999 ML IV (07:36)
--- NOTE | 2023-12-25 09:01 | PC.NURSE ---
Resumed care of patient at 000, IV placed, IVF given per order. POC checked and was 345, provider aware. Pt brought for radiology, resting comfortably in bed at this time, call simmons within reach, all needs met at this time
[2023-12-25 09:52] VITALS: BP 185/64; PULSE 60; RESP 18; TEMP 36.4; O2SAT 99
[2023-12-25 09:59] LABS: Glucose, Whole Blood 266 mg/dL (60-115)
[2023-12-25 12:54] VITALS: BP 178/61; PULSE 60; RESP 18; TEMP 36.6; O2SAT 99
== END 2023-12-25 14:03 | disposition home or self-care (01) ==
PROVIDERS: Emergency Provider Emergency Medicine; PCP Internal Medicine
DX: S09.90XA Unspecified injury of head, initial encounter (principal); S70.01XA Contusion of right hip, initial encounter; W10.9XXA Fall (on) (from) unspecified stairs and steps, initial encounter; E11.65 Type 2 diabetes mellitus with hyperglycemia; I10 Essential (primary) hypertension; E78.5 Hyperlipidemia, unspecified; Z79.4 Long term (current) use of insulin; Z79.85 Long-term (current) use of injectable non-insulin antidiabetic drugs; Y93.9 Activity, unspecified; Y92.008 Other place in unspecified non-institutional (private) residence as the place of occurrence of the external cause; Y99.9 Unspecified external cause status
CPT/HCPCS: 36415; 70450; 72125; 73502; 80053; 81001; 82947; 85025; 96360; 96361; 99284; 99285

== ENCOUNTER 2023-12-28 11:25 | Outpatient (REF) | payer OTHER, SELFPAY ==
--- NOTE | ~2023-12-28 | MM_ITS ---
EXAMINATION: MM SCREENING DIGITAL BREAST TOMOSYNTHESIS, BILATERAL CLINICAL INFORMATION: Screening. Asymptomatic. COMPARISON: Mammography: 08/05/2022, 06/28/2020, and dating back to 2014. TECHNIQUE: Digital breast tomosynthesis is performed in both the craniocaudal and mediolateral oblique views along with computer-aided detection (CAD). Synthesized 2D images are generated from the tomosynthesis. FINDINGS: There are scattered areas of fibroglandular density (ACR BI-RADS breast composition Category b). There are no suspicious masses, suspicious grouped calcifications, or areas of architectural distortion in either breast. The parenchymal pattern is stable from prior exams. No skin or axillary abnormalities. MM/MM tomosynthesis screening BI IMPRESSION: No mammographic evidence of malignancy. ASSESSMENT: BI-RADS BI-RADS 1 - Negative RECOMMENDATION: Routine annual mammography screening. 1 year F/U This examination should not preclude the clinical evaluation of a suspicious palpable abnormality. This patient's information was entered into a reminder system with a target due date for their next mammogram.
== END 2023-12-28 11:26 | disposition home or self-care (01) ==
LOC: HO.MAMMO 11:25
PROVIDERS: Visit Provider Internal Medicine
DX: Z12.31 Encounter for screening mammogram for malignant neoplasm of breast (principal)
CPT/HCPCS: 77063; 77067

== ENCOUNTER → 2023-12-28 11:30 | Outpatient (BNV) | payer OTHER, SELFPAY | PROVIDERS: Visit Provider Radiology Diagnostic Radiology | DX: Z12.31 Encounter for screening mammogram for malignant neoplasm of breast (principal) | CPT/HCPCS: 77063; 77067 ==